=== PATIENT | male | born 1975 | race Caucasian/White ===

== ENCOUNTER 2023-07-01 14:10 | Emergency (ER) | payer OTHER ==
[2023-07-01 14:37] VITALS: BP 124/90; PULSE 86; RESP 18; TEMP 98.4
--- NOTE | 2023-07-01 14:52 | ED ---
General Adult HPI - General Chief complaint: Recheck/Abnormal Lab/Rx Stated complaint: Medication refill Time Seen by Provider: 07/01/23 14:28 Source: patient, RN notes reviewed Mode of arrival: ambulatory Limitations: no limitations - History of Present Illness Initial comments: This is a 48-year-old male presents emergency room chief complaint of a med ication refill. Patient states that he recently moved from the and does not have a current primary care provider in the area. States that his appointment is scheduled at the beginning of July. He takes Wellbutrin and Remeron once a day and is out of refills for the medications. States that he has not taken his medications for the past 2 years with no side effects. No other acute complaints at this time. - Related Data Previous Rx's Medication Instructions Recorded Mirtazapine [Remeron] 15 mg PO DAILY #7 tab 07/01/23 buPROPion XL [Wellbutrin XL] 300 mg PO DAILY #7 tab 07/01/23 Allergies Allergy/AdvReac Type Severity Reaction Status Date / Time No Known Allergies Allergy Verified 07/01/23 14:15 Review of Systems ROS Statement: Those systems with pertinent positive or pertinent negative responses have been documented in the HPI. ROS Other: All systems not noted in ROS Statement are negative. Past Medical History Past Medical History: No Reported History, Hyperlipidemia History of Any Multi-Drug Resistant Organisms: None Reported Past Surgical History: No Surgical Hx Reported Past Psychological History: Anxiety, Depression, PTSD Smoking Status: Vaper Past Alcohol Use History: None Reported Past Drug Use History: None Reported General Exam - General Exam Comments Initial Comments: Vital signs reviewed General: Well-appearing, nontoxic, no acute distress. Head: Normocephalic, atraumatic Eyes: PERRLA, EOMI ENT: Airway patent Chest: Nonlabored breathing Skin: No visual rash, normal skin tone Neuro: Alert and oriented 3 Musculoskeletal: No gross abnormalities Limitations: no limitations Course Vital Signs 07/01/23 14:13 Temperature 98.4 F Pulse Rate 86 Respiratory 18 Rate Blood Pressure 124/90 O2 Sat by Pulse 97 Oximetry Medical Decision Making - Medical Decision Making Was pt. sent in by a medical professional or institution (, PA, MEDICAL RECEPTIONIST MEDICAL ASSISTANT, urgent care, hospital, or intermediate...) When possible be specific @ -No Did you speak to anyone other than the patient for history (EMS, parent, family, police, friend...)? What history was obtained from this source @ -No Did you review nursing and triage notes (agree or disagree)? Why? @ -I reviewed and agree with nursing and triage notes Were old charts reviewed (outside hosp., previous admission, EMS record, old EKG, old radiological studies, urgent care reports/EKG's, intermediate records)? Report findings @ -No old charts were reviewed Differential Diagnosis (chest pain, altered mental status, abdominal pain women, abdominal pain men, vaginal bleeding, weakness, fever, dyspnea, syncope, headache, dizziness, GI bleed, back pain, seizure, CVA, palpatations, mental health, musculoskeletal)? @ -Medication refill EKG interpreted by me (3pts min.). @ -None X-rays interpreted by me (1pt min.). @ -None done CT interpreted by me (1pt min.). @ -None done U/S interpreted by me (1pt. min.). @ -None done What testing was considered but not performed or refused? (CT, X-rays, U/S, labs)? Why? @ -None What meds were considered but not given or refused? Why? @ -None Did you discuss the management of the patient with other professionals (professionals i.e. , PA, MEDICAL RECEPTIONIST MEDICAL ASSISTANT, lab, RT, psych nurse, clinical social worker, access services assistant, teacher, border patrol officer, block and case maker)? Give summary @ -No Was smoking cessation discussed for >3mins.? @ -No Was critical care preformed (if so, how long)? @ -No Were there social determinants of health that impacted care today? How? (Homelessness, low income, unemployed, alcoholism, drug addiction, transportation, low edu. Level, literacy, decrease access to med. care, usp, rehab)? @ -No Was there de-escalation of care discussed even if they declined (Discuss DNR or withdrawal of care, Hospice)? DNR status @ -No What co-morbidities impacted this encounter? (DM, HTN, Smoking, COPD, CAD, Cancer, CVA, ARF, Chemo, Hep., AIDS, mental health diagnosis, sleep apnea, morbid obesity)? @ -None Was patient admitted / discharged? Hospital course, mention meds given and route, prescriptions, significant lab abnormalities, going to OR and other pertinent info. @ -48-year-old male with a need for medication refill. I discussed with the patient he has been taking both medications from over a year with no side effects. Patient will be provided with a 1 week prescription for both Wellbutrin and Remeron. Patient has a appointment scheduled with a primary care provider in July for further evaluation. Undiagnosed new problem with uncertain prognosis? @ -No Drug Therapy requiring intensive monitoring for toxicity (Heparin, Nitro, Insulin, Cardizem)? @ -No Were any procedures done? @ -No Diagnosis/symptom? @ -medication refill Acute, or Chronic, or Acute on Chronic? @ -Acute Uncomplicated (without systemic symptoms) or Complicated (systemic symptoms)? @ -uncomplicated Side effects of treatment? @ -No Exacerbation, Progression, or Severe Exacerbation? @ -No Poses a threat to life or bodily function? How? (Chest pain, [place], [place], pneumonia, PE, COPD, DKA, ARF, appy, cholecystitis, CVA, Diverticulitis, Homicidal, Suicidal, threat to staff... and all critical care pts) @ -No Disposition Clinical Impression: Medication refill Narrative: Return to the emergency department if symptoms worsen or do not improve. Follow-up with primary care provider for further medication prescription. Disposition: HOME SELF-CARE Condition: Good Instructions (If sedation given, give patient instructions): Bupropion (By mouth) Prescriptions: Mirtazapine [Remeron] 15 mg PO DAILY #7 tab buPROPion XL [Wellbutrin XL] 300 mg PO DAILY #7 tab Is patient prescribed a controlled substance at d/c from ED?: No Referrals: None,Stated [Primary Care Provider] - 1-2 days Forms: Area PCPs Time of Disposition: 15:08
== END 2023-07-01 15:40 | disposition home or self-care (01) ==
LOC: EC 14:10
DX: Z76.0 Encounter for issue of repeat prescription (principal); F17.290 Nicotine dependence, other tobacco product, uncomplicated
CPT/HCPCS: 99282

== ENCOUNTER 2023-07-13 10:51 | Emergency (ER) | payer OTHER ==
--- NOTE | 2023-07-13 11:02 | ED ---
General Adult HPI - General Chief complaint: Recheck/Abnormal Lab/Rx Stated complaint: Medication refill Time Seen by Provider: 07/13/23 10:55 Source: patient, RN notes reviewed, old records reviewed Mode of arrival: ambulatory Limitations: no limitations - History of Present Illness Initial comments: 48-year-old male presents emergency department with chief complaint of needing his Wellbutrin refilled. Patient states he is hearing a week ago was given a weeks worth but due to insurance it has been difficult to follow-up with PCP patient denies being suicidal homicidal denies any other complaints. - Related Data Previous Rx's Medication Instructions Recorded Mirtazapine [Remeron] 15 mg PO DAILY #7 tab 07/01/23 buPROPion XL [Wellbutrin XL] 300 mg PO DAILY #7 tab 07/01/23 buPROPion XL [Wellbutrin XL] 300 mg PO DAILY #30 tab 07/13/23 Allergies Allergy/AdvReac Type Severity Reaction Status Date / Time No Known Allergies Allergy Verified 07/13/23 10:56 Review of Systems ROS Statement: Those systems with pertinent positive or pertinent negative responses have been documented in the HPI. ROS Other: All systems not noted in ROS Statement are negative. Past Medical History Past Medical History: No Reported History, Hyperlipidemia History of Any Multi-Drug Resistant Organisms: None Reported Past Surgical History: No Surgical Hx Reported Past Psychological History: Anxiety, Depression, PTSD Smoking Status: Vaper Past Alcohol Use History: None Reported Past Drug Use History: None Reported General Exam - General Exam Comments Initial Comments: General: Well-developed well-nourished distress HEENT: Normocephalic/atraumatic, PERLL, pharynx erythema, swallowing well, EAC no erythema, no exudates, TM clear, no cervical lymph nodes Neck: Supple, nontender, trachea midline Chest/Lungs: Normal respirations, no signs of respiratory distress clear to auscultation bilaterally no wheezes, rales, rhonchi Cardiac: Regular rate and rhythm, normal S1-S2, no murmurs rubs or gallops Abdomen/GI: Soft nontender, bowel sounds equal or quadrant x4, no guarding, no rebound no CVA tenderness : Deferred Musculoskeletal: Nontender, full range of motion, no edema, strength equal bilaterally Skin: Warmth, no rashes or lesions, no cyanosis or diaphoresis Neurologic: AAO x 3, CN 2-12 intact, Psychiatric: Mood and affect normal, judgment normal Limitations: no limitations Course Vital Signs 07/13/23 10:52 Temperature 97.5 F L Pulse Rate 98 Respiratory 18 Rate Blood Pressure 125/90 O2 Sat by Pulse 98 Oximetry Medical Decision Making - Medical Decision Making Was pt. sent in by a medical professional or institution (ROXY Stein, SELLING UNDERWRITER, urgent care, hospital, or care home...) When possible be specific @ -No Did you speak to anyone other than the patient for history (EMS, parent, family, police, friend...)? What history was obtained from this source @ -No Did you review nursing and triage notes (agree or disagree)? Why? @ -I reviewed and agree with nursing and triage notes Were old charts reviewed (outside hosp., previous admission, EMS record, old EKG, old radiological studies, urgent care reports/EKG's, care home records)? Report findings @ -No old charts were reviewed Differential Diagnosis (chest pain, altered mental status, abdominal pain women, abdominal pain men, vaginal bleeding, weakness, fever, dyspnea, syncope, headache, dizziness, GI bleed, back pain, seizure, CVA, palpatations, mental health, musculoskeletal)? @ -Medication refill, depression EKG interpreted by me (3pts min.). @ -As above X-rays interpreted by me (1pt min.). @ -None done CT interpreted by me (1pt min.). @ -None done U/S interpreted by me (1pt. min.). @ -None done What testing was considered but not performed or refused? (CT, X-rays, U/S, labs)? Why? @ -None What meds were considered but not given or refused? Why? @ -None Did you discuss the management of the patient with other professionals (professionals i.e. ROXY Stein, SELLING UNDERWRITER, lab, RT, psych nurse, social service agency director, cyber special agent, teacher, child support officer, case mgr)? Give summary @ -No Was smoking cessation discussed for >3mins.? @ -No Was critical care preformed (if so, how long)? @ -No Were there social determinants of health that impacted care today? How? (Homelessness, low income, unemployed, alcoholism, drug addiction, transportation, low edu. Level, literacy, decrease access to med. care, correction, rehab)? @ -No Was there de-escalation of care discussed even if they declined (Discuss DNR or withdrawal of care, Hospice)? DNR status @ -No What co-morbidities impacted this encounter? (DM, HTN, Smoking, COPD, CAD, Cancer, CVA, ARF, Chemo, Hep., AIDS, mental health diagnosis, sleep apnea, morbid obesity)? @ -None Was patient admitted / discharged? Hospital course, mention meds given and route, prescriptions, significant lab abnormalities, going to OR and other pertinent info. @ -Discharge patient given prescription refill will be discharged in stable condition Undiagnosed new problem with uncertain prognosis? @ -No Drug Therapy requiring intensive monitoring for toxicity (Heparin, Nitro, Insulin, Cardizem)? @ -No Were any procedures done? @ -No Diagnosis/symptom? @ -Medication refill Acute, or Chronic, or Acute on Chronic? @ -Acute Uncomplicated (without systemic symptoms) or Complicated (systemic symptoms)? @ -Uncomplicated Side effects of treatment? @ -No Exacerbation, Progression, or Severe Exacerbation? @ -No Poses a threat to life or bodily function? How? (Chest pain, [place], [place], pneumonia, PE, COPD, DKA, ARF, appy, cholecystitis, CVA, Diverticulitis, Homicidal, Suicidal, threat to staff... and all critical care pts) @ -No Disposition Clinical Impression: Medication refill Disposition: HOME SELF-CARE Condition: Stable Additional Instructions: Please return to the Emergency Department if symptoms worsen or any other concerns. Prescriptions: buPROPion XL [Wellbutrin XL] 300 mg PO DAILY #30 tab Is patient prescribed a controlled substance at d/c from ED?: No Referrals: None,Stated [Primary Care Provider] - 1-2 days Time of Disposition: 11:01
[2023-07-13 13:27] VITALS: BP 125/90; PULSE 98; RESP 18; TEMP 97.5
== END 2023-07-13 11:17 | disposition home or self-care (01) ==
LOC: EC 10:51
DX: Z76.0 Encounter for issue of repeat prescription (principal); F17.290 Nicotine dependence, other tobacco product, uncomplicated
CPT/HCPCS: 99281; 99283

== ENCOUNTER 2023-11-23 12:40 | Observation (INO) | payer OTHER ==
--- NOTE | 2023-11-23 13:06 | ED ---
General Adult HPI - General Chief complaint: Chest Pain Stated complaint: Chest Pain Time Seen by Provider: 11/23/23 12:52 Source: patient, RN notes reviewed Mode of arrival: ambulatory Limitations: no limitations - History of Present Illness Initial comments: Patient is a 48-year-old male presenting to the emergency department with concerns with chest discomfort. Onset of symptoms was around 2 AM. Discomfort is sternal and sharp. No radiation. Discomfort does worsen with exertion as well as position changes. Patient does have some occasional associated dyspnea and sweating. No nausea. No history of similar symptoms previously. Patient does use tobacco and does have history of high cholesterol. There is a probable family history of cardiac disease - Related Data Home Medications Medication Instructions Recorded Confirmed Mirtazapine [Remeron] 15 mg PO HS 11/23/23 11/23/23 OLANZapine [ZyPREXA] 10 mg PO W/LUNCH 11/23/23 11/23/23 Rosuvastatin [Crestor] 10 mg PO DAILY 11/23/23 11/23/23 buPROPion XL [Wellbutrin XL] 150 mg PO W/SUPPER 11/23/23 11/23/23 Previous Rx's Medication Instructions Recorded buPROPion XL [Wellbutrin XL] 300 mg PO DAILY #30 tab 07/13/23 Allergies Allergy/AdvReac Type Severity Reaction Status Date / Time No Known Allergies Allergy Verified 11/23/23 12:44 Review of Systems ROS Statement: Those systems with pertinent positive or pertinent negative responses have been documented in the HPI. ROS Other: All systems not noted in ROS Statement are negative. Constitutional: Denies: fever Eyes: Denies: eye pain ENT: Denies: ear pain Respiratory: Reports: as per HPI Cardiovascular: Reports: as per HPI, chest pain Gastrointestinal: Denies: abdominal pain Musculoskeletal: Denies: back pain Past Medical History Past Medical History: Hyperlipidemia History of Any Multi-Drug Resistant Organisms: None Reported Past Surgical History: No Surgical Hx Reported Past Psychological History: Anxiety, Bipolar, Depression, PTSD Smoking Status: Vaper Past Alcohol Use History: None Reported Past Drug Use History: None Reported General Exam Limitations: no limitations General appearance: alert, in no apparent distress Head exam: Present: normocephalic Eye exam: Present: normal appearance Neck exam: Present: normal inspection Respiratory exam: Present: normal lung sounds bilaterally. Absent: chest wall t enderness Cardiovascular Exam: Present: regular rate, normal rhythm, normal heart sounds Expanded Peripheral pulses: 2+: Radial (R), Radial (L), Dorsalis Pedis (R), Dorsalis Pedis (L) GI/Abdominal exam: Present: soft. Absent: tenderness Extremities exam: Present: normal inspection. Absent: pedal edema, calf tenderness Neurological exam: Present: alert Psychiatric exam: Present: normal affect, normal mood Skin exam: Present: normal color Course Vital Signs 11/23/23 12:41 Temperature 97.7 F Pulse Rate 71 Respiratory 18 Rate Blood Pressure 126/88 O2 Sat by Pulse 99 Oximetry EKG Findings - EKG Results: EKG: interpreted by ERMD (Nonspecific ST-T), sinus rhythm, normal axis, normal Q RS Medical Decision Making - Medical Decision Making Was pt. sent in by a medical professional or institution (, PA, BRUSH WORKER, urgent care, hospital, or longterm...) When possible be specific @ -No Did you speak to anyone other than the patient for history (EMS, parent, family, police, friend...)? What history was obtained from this source @ -No Did you review nursing and triage notes (agree or disagree)? Why? @ -I reviewed and agree with nursing and triage notes Were old charts reviewed (outside hosp., previous admission, EMS record, old EKG, old radiological studies, urgent care reports/EKG's, longterm records)? Report findings @ -No old charts were reviewed Differential Diagnosis (chest pain, altered mental status, abdominal pain women, abdominal pain men, vaginal bleeding, weakness, fever, dyspnea, syncope, headache, dizziness, GI bleed, back pain, seizure, CVA, palpatations, mental health, musculoskeletal)? @ -Differential Chest Pain: Stable Angina, Unstable Angina, STEMI, NSTEMI Aortic Dissection, Pneumothorax, Musculoskeletal, Esophageal Spasm GERD, Cholecystitis, Pancreatitis, Zoster, this is not meant to be an all-inclusive list. EKG interpreted by me (3pts min.). @ -As above X-rays interpreted by me (1pt min.). @ -Chest x-ray shows no acute process CT interpreted by me (1pt min.). @ -None done U/S interpreted by me (1pt. min.). @ -None done What testing was considered but not performed or refused? (CT, X-rays, U/S, labs)? Why? @ -None What meds were considered but not given or refused? Why? @ -None Did you discuss the management of the patient with other professionals (professionals i.e. , PA, BRUSH WORKER, lab, RT, psych nurse, socially responsible investment adviser, fitness and wellness coordinator, teacher, chief business officer, cyanide case hardener)? Give summary @ -Case discussed with Dr. Patel who will admit covering hospital call Was smoking cessation discussed for >3mins.? @ -No Was critical care preformed (if so, how long)? @ -No Were there social determinants of health that impacted care today? How? (Homelessness, low income, unemployed, alcoholism, drug addiction, transportation, low edu. Level, literacy, decrease access to med. care, retirement, rehab)? @ -No Was there de-escalation of care discussed even if they declined (Discuss DNR or withdrawal of care, Hospice)? DNR status @ -No What co-morbidities impacted this encounter? (DM, HTN, Smoking, COPD, CAD, Cancer, CVA, ARF, Chemo, Hep., AIDS, mental health diagnosis, sleep apnea, morbid obesity)? @ -History of tobacco use and hypercholesterolemia as well as family history of cardiac disease Was patient admitted / discharged? Hospital course, mention meds given and route, prescriptions, significant lab abnormalities, going to OR and other pertinent info. @ -Patient presents with chest discomfort improved with nitroglycerin. First troponin unremarkable. Patient will be admitted with cardiac consult. Admission orders written Undiagnosed new problem with uncertain prognosis? @ -No Drug Therapy requiring intensive monitoring for toxicity (Heparin, Nitro, Insulin, Cardizem)? @ -No Were any procedures done? @ -No Diagnosis/symptom? @ -Chest pain Acute, or Chronic, or Acute on Chronic? @ -Acute Uncomplicated (without systemic symptoms) or Complicated (systemic symptoms)? @ -Default Side effects of treatment? @ -No Exacerbation, Progression, or Severe Exacerbation? @ -No Poses a threat to life or bodily function? How? (Chest pain, [place], [place], pneumonia, PE, COPD, DKA, ARF, appy, cholecystitis, CVA, Diverticulitis, Homicidal, Suicidal, threat to staff... and all critical care pts) @ -Threat to cardiac function - Lab Data Result diagrams: 11/23/23 13:15 11/23/23 13:15 Lab Results 11/23/23 11/23/23 11/23/23 Range/Units 13:15 13:15 13:15 WBC 5.9 (3.8-10.6) k/uL RBC 4.90 (4.30-5.90) m/uL Hgb 14.6 (13.0-17.5) gm/dL Hct 41.9 (39.0-53.0) % MCV 85.4 (80.0-100.0) fL MCH 29.8 (25.0-35.0) pg MCHC 34.9 (31.0-37.0) g/dL RDW 13.5 (11.5-15.5) % Plt Count 303 (150-450) k/uL MPV 7.1 Neutrophils % 60 % Lymphocytes % 28 % Monocytes % 6 % Eosinophils % 4 % Basophils % 1 % Neutrophils # 3.5 (1.3-7.7) k/uL Lymphocytes # 1.7 (1.0-4.8) k/uL Monocytes # 0.4 (0-1.0) k/uL Eosinophils # 0.3 (0-0.7) k/uL Basophils # 0.0 (0-0.2) k/uL PT 10.7 (10.0-12.5) sec INR 1.0 (<1.2) APTT 25.0 (22.0-30.0) sec D-Dimer 0.58 (<0.60) mg/L FEU Sodium 141 (137-145) mmol/L Potassium 4.5 (3.5-5.1) mmol/L Chloride 108 H (98-107) mmol/L Carbon Dioxide 28 (22-30) mmol/L Anion Gap 5 mmol/L BUN 16 (9-20) mg/dL Creatinine 1.03 (0.66-1.25) mg/dL Est GFR (CKD-EPI)AfAm >90 (>60 ml/min/1.73 sqM) Est GFR (CKD-EPI)NonAf 87 (>60 ml/min/1.73 sqM) Glucose 96 (74-99) mg/dL Calcium 9.5 (8.4-10.2) mg/dL Magnesium 1.9 (1.6-2.3) mg/dL Total Bilirubin 0.7 (0.2-1.3) mg/dL AST 23 (17-59) U/L ALT 14 (4-49) U/L Alkaline Phosphatase 84 (38-126) U/L Troponin I (0.000-0.034) ng/mL Total Protein 7.1 (6.3-8.2) g/dL Albumin 4.2 (3.5-5.0) g/dL Amylase 65 (30-110) U/L Lipase 101 (23-300) U/L 11/23/23 Range/Units 13:15 WBC (3.8-10.6) k/uL RBC (4.30-5.90) m/uL Hgb (13.0-17.5) gm/dL Hct (39.0-53.0) % MCV (80.0-100.0) fL MCH (25.0-35.0) pg MCHC (31.0-37.0) g/dL RDW (11.5-15.5) % Plt Count (150-450) k/uL MPV Neutrophils % % Lymphocytes % % Monocytes % % Eosinophils % % Basophils % % Neutrophils # (1.3-7.7) k/uL Lymphocytes # (1.0-4.8) k/uL Monocytes # (0-1.0) k/uL Eosinophils # (0-0.7) k/uL Basophils # (0-0.2) k/uL PT (10.0-12.5) sec INR (<1.2) APTT (22.0-30.0) sec D-Dimer (<0.60) mg/L FEU Sodium (137-145) mmol/L Potassium (3.5-5.1) mmol/L Chloride (98-107) mmol/L Carbon Dioxide (22-30) mmol/L Anion Gap mmol/L BUN (9-20) mg/dL Creatinine (0.66-1.25) mg/dL Est GFR (CKD-EPI)AfAm (>60 ml/min/1.73 sqM) Est GFR (CKD-EPI)NonAf (>60 ml/min/1.73 sqM) Glucose (74-99) mg/dL Calcium (8.4-10.2) mg/dL Magnesium (1.6-2.3) mg/dL Total Bilirubin (0.2-1.3) mg/dL AST (17-59) U/L ALT (4-49) U/L Alkaline Phosphatase (38-126) U/L Troponin I <0.012 (0.000-0.034) ng/mL Total Protein (6.3-8.2) g/dL Albumin (3.5-5.0) g/dL Amylase (30-110) U/L Lipase (23-300) U/L Disposition Clinical Impression: Chest pain Disposition: ADMITTED IP TO THIS HOSP Is patient prescribed a controlled substance at d/c from ED?: No Referrals: None,Stated [Primary Care Provider] - 1-2 days Time of Disposition: 14:16
[2023-11-23] MEDS: NITROGLYCERIN SL TABS 0.4 MG TAB SUBLINGUAL STA ×3 (13:07→13:16)
[2023-11-23] MEDS: ASPIRIN 81 MG PO STA (13:07)
--- NOTE | 2023-11-23 13:34 | XR ---
EXAMINATION TYPE: XR chest 2V DATE OF EXAM: 11/23/2023 COMPARISON: NONE TECHNIQUE: PA and lateral views submitted. HISTORY: Chest pain FINDINGS: The lungs are clear and there is no pneumothorax, pleural effusion, or focal pneumonia. Heart size normal and no overt failure. Osseous structures demonstrate hypertrophic and degenerative changes of the spine. Hyperinflation compatible with COPD. IMPRESSION: 1. No acute process. [facility], , 11/23/2023 1:31 PM
[2023-11-23 13:35] LABS: ALT 14 U/L (4-49); AST 23 U/L (17-59); African American GFR (CKD) >90 (>60 ml/min/1.73 sqM); Albumin 4.2 g/dL (3.5-5.0); Alkaline Phosphatase 84 U/L (38-126); Amylase 65 U/L (30-110); Anion Gap 5 mmol/L; Blood Urea Nitrogen 16 mg/dL (9-20); Calcium 9.5 mg/dL (8.4-10.2); Carbon Dioxide 28 mmol/L (22-30); Chloride 108 mmol/L (98-107); Glucose 96 mg/dL (74-99); Lipase 101 U/L (23-300); Magnesium 1.9 mg/dL (1.6-2.3); Non-African American GFR(CKD) 87 (>60 ml/min/1.73 sqM); Potassium 4.5 mmol/L (3.5-5.1); Sodium 141 mmol/L (137-145); Total Bilirubin 0.7 mg/dL (0.2-1.3); Total Protein 7.1 g/dL (6.3-8.2)
[2023-11-23 13:36] LABS: Basophils % (A) 1 %; Eosinophils # (A) 0.3 k/uL (0-0.7); Eosinophils % (A) 4 %; HCT 41.9 % (39.0-53.0); HGB 14.6 gm/dL (13.0-17.5); Lymphocytes # (A) 1.7 k/uL (1.0-4.8); Lymphocytes % (A) 28 %; MCH 29.8 pg (25.0-35.0); MCHC 34.9 g/dL (31.0-37.0); MCV 85.4 fL (80.0-100.0); Mean Platelet Volume 7.1; Monocytes # (A) 0.4 k/uL (0-1.0); Monocytes % (A) 6 %; Neutrophils # (A) 3.5 k/uL (1.3-7.7); Neutrophils % (A) 60 %; Platelet Count 303 k/uL (150-450); RDW 13.5 % (11.5-15.5); WBC 5.9 k/uL (3.8-10.6)
[2023-11-23 13:39] LABS: Prothrombin Time 10.7 sec (10.0-12.5)
[2023-11-23] MEDS ORDERED: NITROGLYCERIN SL TABS 0.4 MG TAB SUBLINGUAL PRN (14:46)
[2023-11-23] MEDS: NITROGLYCERIN OINT 1 INCH/GM PACKET TOPICAL SCH (15:03)
[2023-11-23] MEDS: buPROPion XL 150 MG TAB.ER.24H PO SCH (18:20)
[2023-11-23] MEDS: MIRTAZAPINE 15 MG TAB PO SCH (22:10)
[2023-11-23] MEDS: ACETAMINOPHEN TAB 500 MG TAB PO PRN (23:16)
--- NOTE | 2023-11-24 04:49 | HP ---
HISTORY AND PHYSICAL HISTORY OF PRESENT ILLNESS: The patient came to the hospital with some chest pain. Chest discomfort started at 2 in the morning, substernal, sharp, nonradiating, gets worse with exertion as well as position change, some occasional dyspnea, sweating. No nausea. High cholesterol, nicotine addiction, family history of heart disease. HOME MEDICATIONS: 1. Wellbutrin XL 150 daily. 2. Crestor 10 mg daily. 3. Zyprexa 10 daily. 4. Remeron 15 daily. ALLERGIES: Negative. REVIEW OF SYSTEMS: A 14-point review of systems positive for chest pain, chronic fatigue, weakness, otherwise negative. PAST MEDICAL HISTORY: As mentioned, dyslipidemia, anxiety, bipolar depression, PTSD. He is a chronic vapor. PHYSICAL EXAMINATION: VITAL SIGNS: Temp 97.7 pulse 71, respiratory rate 18, blood pressure 126/88. CARDIOVASCULAR: S1, S2. LUNGS: Transmitted upper sounds. Decreased breath sounds. PSYCH: Anxious, nervous. NEUROLOGIC: Cranial nerves intact. GI: Soft, nontender. HEMATOLOGY: Negative Homans. SKIN: Warm, dry, and intact. LABORATORY DATA: Hemoglobin is 14.6, white count 5.9, BUN 16, creatinine 1.03. Troponin 1st one is negative. IMPRESSION: Cardiology will evaluate, rule out [place]. Ordered D-dimer. EKG shows no ischemia. Rule out [place], atypical chest pain. Order echocardiology consult. Please see further orders. MMODL / IJN: [id number] /
[2023-11-24] MEDS: ASPIRIN 325 MG TAB PO SCH (09:15)
[2023-11-24] MEDS: ATORVASTATIN 20 MG TAB PO SCH (09:15)
--- NOTE | 2023-11-24 10:11 | P.CRDCN ---
History of Present Illness Consult date: 11/24/23 Consult reason: chest pain History of present illness: This is a 48-year-old male with past medical history of hyperlipidemia, PTSD, bipolar disorder. We have been asked to evaluate the patient for chest pain. No previous cardiac history, no significant FMH of cardiac disease. Pain in midsternal area, sharp, onset 2 am while sleeping. Pain worse with DB and movement. Pain is worse when he lays on his left side. NtG s/l and NTP seemed to help. He denies fever or chills but sweats for a few days. Pain is minimal at this time. Patient vapes, no marijuana use, no alcohol use, no illicit drug use. Blood pressure 100/65, pulse ox 96% on room air, heart rate 59. EKG: Sinus rhythm with early repolarization Chest x-ray: No acute process Laboratory studies: CBC D-dimer within normal limits. Troponin negative x 3. BUN 16 creatinine 1.03. Home cardiac medications: Crestor 10 mg daily Review Of Systems: At the time of my exam: CONSTITUTIONAL: Denies fever or chills. HEENT: Denies blurred vision, vision changes, or eye pain. Denies hemoptysis CARDIOVASCULAR: + chest pain. Denies orthopnea. Denies PND. Denies palpitations RESPIRATORY: Denies shortness of breath. GASTROINTESTINAL: Denies abdominal pain. Denies nausea or vomiting. HEMATOLOGIC: Denies bleeding disorders. GENITOURINARY: Denies any blood in urine. SKIN: Denies puritis. Denies rash. Physical examination: Gen: This is a 48-year-old male in no acute distress VS: reviewed HEENT: Head is atraumatic, normocephalic. Pupils equal, round. Sclerae is anicteric. NECK: Supple. No JVD. LUNGS: Clear to auscultation. No wheezes or rhonchi. No intercostal retractions. HEART: Regular rate and rhythm. No murmur. ABDOMEN: Soft No tenderness. EXTREMITIES: No pedal edema. No calf tenderness. NEUROLOGICAL: Patient is awake, alert and oriented x3. Assessment: Atypical chest pain, acute coronary syndrome ruled out Early repolarization concerning for pericarditis Hyperlipidemia PTSD Bipolar disorder Plan: Resume patient's home cardiac medications D/c NTP Schedule patient for stress echocardiogram today Obtain CRP and sed rate. If these are elevated, start patient on colchicine If stress echocardiogram is unremarkable, patient is cleared for discharge from cardiology. Thank you kindly for this consultation. Nurse practitioner note has been reviewed, I agree with documented findings and plan of care. Patient was seen and examined. Past Medical History Past Medical History: Hyperlipidemia History of Any Multi-Drug Resistant Organisms: None Reported Past Surgical History: No Surgical Hx Reported Past Psychological History: Anxiety, Bipolar, Depression, PTSD Smoking Status: Vaper Past Alcohol Use History: None Reported Past Drug Use History: None Reported Medications and Allergies Home Medications Medication Instructions Recorded Confirmed Type buPROPion XL [Wellbutrin XL] 300 mg PO DAILY #30 tab 07/13/23 11/23/23 Rx Mirtazapine [Remeron] 15 mg PO HS 11/23/23 11/23/23 History OLANZapine [ZyPREXA] 10 mg PO W/LUNCH 11/23/23 11/23/23 History Rosuvastatin [Crestor] 10 mg PO DAILY 11/23/23 11/23/23 History buPROPion XL [Wellbutrin XL] 150 mg PO W/SUPPER 11/23/23 11/23/23 History Allergies Allergy/AdvReac Type Severity Reaction Status Date / Time No Known Allergies Allergy Verified 11/23/23 12:44 Physical Exam Vitals: Vital Signs Temp Pulse Pulse Pulse Resp BP BP 11/24/23 07:00 97.5 F L 59 L 17 100/65 11/24/23 00:53 98.0 F 75 18 108/69 11/23/23 23:20 79 11/23/23 19:54 98.0 F 67 18 11/23/23 16:23 97.9 F 61 16 11/23/23 15:16 68 16 117/80 11/23/23 12:41 97.7 F 71 18 126/88 BP Pulse Ox 11/24/23 07:00 96 11/24/23 00:53 94 L 11/23/23 23:20 138/69 11/23/23 19:54 106/65 95 11/23/23 16:23 107/70 97 11/23/23 15:16 100 11/23/23 12:41 99 Intake and Output 11/23/23 11/24/23 11/24/23 22:59 06:59 14:59 Intake Total 0 Balance 0 Intake: Oral 0 Other: Voiding Method Toilet # Voids 1 2 Weight 86.183 kg Results 11/23/23 13:15 11/23/23 13:15 Cardiac Enzymes 11/23/23 11/23/23 11/23/23 Range/Units 13:15 13:15 17:14 AST 23 (17-59) U/L Troponin I <0.012 <0.012 (0.000-0.034) ng/mL 11/23/23 Range/Units 21:18 AST (17-59) U/L Troponin I <0.012 (0.000-0.034) ng/mL Coagulation 11/23/23 Range/Units 13:15 PT 10.7 (10.0-12.5) sec APTT 25.0 (22.0-30.0) sec CBC 11/23/23 Range/Units 13:15 WBC 5.9 (3.8-10.6) k/uL RBC 4.90 (4.30-5.90) m/uL Hgb 14.6 (13.0-17.5) gm/dL Hct 41.9 (39.0-53.0) % Plt Count 303 (150-450) k/uL Comprehensive Metabolic Panel 11/23/23 Range/Units 13:15 Sodium 141 (137-145) mmol/L Potassium 4.5 (3.5-5.1) mmol/L Chloride 108 H (98-107) mmol/L Carbon Dioxide 28 (22-30) mmol/L BUN 16 (9-20) mg/dL Creatinine 1.03 (0.66-1.25) mg/dL Glucose 96 (74-99) mg/dL Calcium 9.5 (8.4-10.2) mg/dL AST 23 (17-59) U/L ALT 14 (4-49) U/L Alkaline Phosphatase 84 (38-126) U/L Total Protein 7.1 (6.3-8.2) g/dL Albumin 4.2 (3.5-5.0) g/dL Current Medications Generic Name Dose Route Start Last Admin Trade Name Freq PRN Reason Stop Dose Admin Acetaminophen 500 mg 11/23/23 22:58 11/23/23 23:16 Acetaminophen Tab 500 Mg Tab PO 500 mg Q6HR PRN Administration Fever and/ or Pain Aspirin 325 mg 11/24/23 09:00 Aspirin 325 Mg Tab PO DAILY [facility] Atorvastatin Calcium 20 mg 11/24/23 09:00 Atorvastatin 20 Mg Tab PO DAILY [facility] Bupropion HCl 300 mg 11/24/23 09:00 Bupropion Xl 300 Mg Tab.Er.24h PO DAILY [facility]CO A Bupropion HCl 150 mg 11/23/23 17:30 11/23/23 18:20 Bupropion Xl 150 Mg Tab.Er.24h PO 150 mg W/SUPPER MARCO A Administration Mirtazapine 15 mg 11/23/23 21:00 11/23/23 22:10 Mirtazapine 15 Mg Tab PO 15 mg HS MARCO A Administration Nitroglycerin 0.4 mg 11/23/23 14:46 Nitroglycerin Sl Tabs 0.4 Mg Tab SUBLINGUAL Q5M PRN Chest Pain Nitroglycerin 1 inch 11/23/23 15:00 11/24/23 06:52 Nitroglycerin Oint 1 Inch/Gm Packet TOPICAL Not Given Q6HR [facility] Olanzapine 10 mg 11/24/23 12:30 Olanzapine 10 Mg Tab PO W/LUNCH [facility] Intake and Output 11/23/23 11/24/23 11/24/23 22:59 06:59 14:59 Intake Total 0 Balance 0 Intake: Oral 0 Other: Voiding Method Toilet # Voids 1 2 Weight 86.183 kg 11/23/23 13:15 11/23/23 13:15
[2023-11-24 10:59] LABS: Chol/HDL Ratio 6.16 Ratio; LDL Cholesterol,Calculated 138.5 mg/dL (0.0-131.0)
[2023-11-24] MEDS: buPROPion XL 300 MG TAB.ER.24H PO SCH (11:31)
[2023-11-24] MEDS: OLANZapine 10 MG TAB PO SCH (12:29)
[2023-11-24 14:33] VITALS: BP 123/80; PULSE 94; RESP 16; TEMP 98.5
--- NOTE | 2023-11-24 14:39 | CA ---
Transthoracic Echo Report Name: Basim Scanlon Age: 48 Gender: M : 1975 Exam Date: 11/24/2023 08:23 Exam Location: [facility] Ht (in): 69 Wt (lb): 190 Ordering Physician: Mehdi Patel MD Attending/Referring Phys: Rigging Loft Repairer Deana Hernandez RDCS Procedure CPT: Indications: CP Cardiac Hx: Technical Quality: Fair Contrast 1: Total Dose (mL): Contrast 2: Total Dose (mL): MEASUREMENTS (Male / Female) Normal Values 2D ECHO LV Diastolic Diameter PLAX 4.7 cm 4.2 - 5.9 / 3.9 - 5.3 cm LV Systolic Diameter PLAX 2.6 cm IVS Diastolic Thickness 0.9 cm 0.6 - 1.0 / 0.6 - 0.9 cm LVPW Diastolic Thickness 0.9 cm 0.6 - 1.0 / 0.6 - 0.9 cm LV Relative Wall Thickness 0.4 RV Internal Dim ED PLAX 2.9 cm LA Systolic Diameter LX 3.4 cm 3.0 - 4.0 / 2.7 - 3.8 cm LV Diastolic Volume MOD 4C 100.9 cm??? LV Systolic Volume MOD 4C 51.1 cm??? LV Ejection Fraction MOD 4C 49.4 % LV Cardiac Index MOD 4C 1349.5 cm???/min???m??? LV Diastolic Length 4C 9.8 cm LV Systolic Length 4C 8.1 cm LV Diastolic Volume MOD 2C 86.4 cm??? LV Systolic Volume MOD 2C 48.3 cm??? LV Ejection Fraction MOD 2C 44.1 % LV Cardiac Index MOD 2C 1032.2 cm???/min???m??? LV Diastolic Length 2C 8.8 cm LV Systolic Length 2C 7.3 cm LA Volume 58.9 cm??? 18 - 58 / 22 - 52 cm??? LA Volume Index 28.5 cm???/m??? 16 - 28 cm???/m??? M-MODE Aortic Root Diameter MM 3.2 cm AV Cusp Separation MM 2.2 cm DOPPLER AV Peak Velocity 133.6 cm/s AV Peak Gradient 7.1 mmHg MV Area PHT 2.1 cm??? Mitral E Point Velocity 59.4 cm/s Mitral A Point Velocity 59.4 cm/s Mitral E to A Ratio 1.0 MV Deceleration Time 359.3 ms FINDINGS Left Ventricle Left ventricular ejection fraction is estimated at 50-55 %. Left ventricular cavity size normal. Left ventricular wall thickness normal. Normal left ventricular wall motion. Right Ventricle Normal right ventricular size and function. Unable to estimate the right ventricular systolic pressure. Right Atrium Normal right atrial size. No right atrial thrombus or mass seen. Left Atrium Normal left atrial size. No left atrial thrombus or mass present. Mitral Valve Structurally normal mitral valve. No mitral stenosis, regurgitation or prolapse. Aortic Valve Trileaflet aortic valve. No aortic valve stenosis or regurgitation. Tricuspid Valve Structurally normal tricuspid valve. No tricuspid stenosis, regurgitation or prolapse. Pulmonic Valve Structurally normal pulmonic valve. Trace to mild pulmonic regurgitation. Pericardium No pericardial or pleural effusion. Aorta Normal size aortic root and proximal ascending aorta. CONCLUSIONS Left ventricular ejection fraction 50-55% Trace to mild pulmonic regurgitation No pericardial effusion Previewed by: Dr. Mor Veliz DO (Electronically Signed) Final Date: 24 November 2023 14:39
--- NOTE | 2023-11-24 14:57 | CA ---
Stress Echo Report Basim Scanlon Age: 48 Gender: M : 1975 Exam Date: 11/24/2023 10:30 Exam Location: [facility] Ht (in): 69 Wt (lb): 190 Ordering Physician: Kait Dobbins Referring Physician: [id number] Foundation Stage Teacher: Adiel Edgar Technologist Procedure CPT: Indication: Chest Pain ICD-9 Codes: Rhythm: Patient History: Cardiac Medications: SEE CHART Medications in past 24 hours: Contrast: N/A Stress Results Protocol: Miki Total dose(mL): NA Exercise Duration (min:sec): 9:[address] Depression (mm): Angina Score: Garcia Score: METS: 11.1 Resting HR: 67 Resting BP: 117 / 91 Peak HR: 156 Peak BP: 162 / 70 Max Predicted HR: 173 90 % Max Predicted HR Target HR: 147 Double Product: 43634 Stress Summary: BP Response: Reason for Termination: Reached target heart rate or work-load Cardiac Symptoms: NO SYMPTOMS ECG Analysis Resting ECG: Stress ECG: Arrhythmia: Echo Analysis Resting Echo: Peak Echo Analysis: MEASUREMENTS (Male/Female) Normal Values CONCLUSIONS Patient underwent exercise stress echo with a Miki protocol treadmill stress test. Patient exercised into Stage 3 for a total of 9 minutes and 31 seconds reaching a total of 11.1 METS. Patient's maximum heart rate was 156 which represented 90% age- predicted maximum heart rate. Stress EKG portion: At baseline patient's EKG showed normal sinus rhythm, normal axis, no significant ST or T wave abnormalities with borderline J-point elevation.. At peak exercise, EKG showed no significant change from baseline. Stress echo portion: 2-D echocardiogram was performed in the parasternal long, personal short, apical 2 and apical four-chamber views at rest, peak exercise and in recovery. At baseline, echocardiogram showed left ventricular ejection fraction 55% without wall motion abnormalities. With peak exercise, echocardiogram shows improvement in left ventricular ejection fraction, increase contractility, decrease in left ventricular end systolic dimension without wall motion abnormalities consistent with a normal response to exercise. Conclusions: 1. Normal EKG and echo response to exercise without evidence of inducible ischemia. 2. Good exercise capacity. Dr. Mor Veliz DO (Electronically Signed) Final Date: 24 November 2023 14:56
[2023-11-25] MEDS ORDERED: ASPIRIN 81 MG PO SCH (09:00)
== END 2023-11-24 16:00 | disposition home or self-care (01) ==
LOC: EC 12:40 → 6NMEDSUR 14:47
PROVIDERS: ADMIT Family Medicine; ATTEND Family Medicine
DX: R07.89 Other chest pain (principal); R06.00 Dyspnea, unspecified; E78.00 Pure hypercholesterolemia, unspecified; F17.290 Nicotine dependence, other tobacco product, uncomplicated; R53.1 Weakness; R53.83 Other fatigue; F31.9 Bipolar disorder, unspecified; F43.10 Post-traumatic stress disorder, unspecified; F41.9 Anxiety disorder, unspecified; Z79.899 Other long term (current) drug therapy; Z82.49 Family history of ischemic heart disease and other diseases of the circulatory system
CPT/HCPCS: 99285; 36415; 93005; 93306; 93351; 85379; 80061; 80053; 85652; 82150; 83690; 83735; 84484; 85025; 85610; 85730; 86140; 71046; G0378 ×2

== ENCOUNTER 2023-12-01 13:27 | Inpatient (IN) | payer MEDICAID, OTHER ==
[2023-12-01] MEDS ORDERED: IBUPROFEN 600 MG TAB PO PRN (15:43)
[2023-12-01] MEDS ORDERED: haloperidoL 5 MG TAB PO PRN (15:43)
[2023-12-01] MEDS ORDERED: LORazepam 1 MG TAB PO PRN (15:43)
[2023-12-01] MEDS ORDERED: MAGNESIUM HYDROXIDE 2,400 MG/30 ML CUP PO PRN (15:43)
[2023-12-01] MEDS ORDERED: HALOPERIDOL LACTATE 5 MG/ML 1 ML VIAL IM PRN (15:43)
[2023-12-01] MEDS ORDERED: LORazepam 2 MG/ML INJ IM PRN (15:43)
[2023-12-01] MEDS: NICOTINE 21MG/24HR PATCH TRANSDERM SCH (16:01)
[2023-12-01] MEDS: buPROPion XL 150 MG TAB.ER.24H PO SCH (17:01)
[2023-12-01] MEDS: MIRTAZAPINE 15 MG TAB PO SCH (20:54)
--- NOTE | 2023-12-01 22:21 | P.PN ---
Progress Note - Text Progress Note Date: 12/01/23 Attempted to see the patient in the MHU on 11/30 at 2100. The patient refused to be seen or be evaluated.
[2023-12-02] MEDS: buPROPion XL 300 MG TAB.ER.24H PO SCH (08:16)
[2023-12-02] MEDS: ATORVASTATIN 20 MG TAB PO SCH (08:16)
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
[2023-12-02 13:02] LABS: Basophils # (A) 0.1 k/uL (0-0.2); Basophils % (A) 1 %; Eosinophils # (A) 0.3 k/uL (0-0.7); Eosinophils % (A) 5 %; HCT 44.8 % (39.0-53.0); HGB 15.1 gm/dL (13.0-17.5); Lymphocytes # (A) 2.1 k/uL (1.0-4.8); Lymphocytes % (A) 31 %; MCH 29.6 pg (25.0-35.0); MCHC 33.7 g/dL (31.0-37.0); MCV 87.8 fL (80.0-100.0); Mean Platelet Volume 7.1; Monocytes # (A) 0.4 k/uL (0-1.0); Monocytes % (A) 6 %; Neutrophils # (A) 3.8 k/uL (1.3-7.7); Neutrophils % (A) 56 %; Platelet Count 397 k/uL (150-450); RDW 13.7 % (11.5-15.5); WBC 6.7 k/uL (3.8-10.6)
[2023-12-02 13:22] LABS: ALT 14 U/L (4-49); AST 20 U/L (17-59); African American GFR (CKD) >90 (>60 ml/min/1.73 sqM); Albumin 4.2 g/dL (3.5-5.0); Alkaline Phosphatase 82 U/L (38-126); Anion Gap 9 mmol/L; Bilirubin, Delta 0.1 mg/dL (0.0-0.2); Bilirubin,Unconjugated 0.2 mg/dL (0.0-1.1); Blood Urea Nitrogen 14 mg/dL (9-20); Calcium 9.4 mg/dL (8.4-10.2); Carbon Dioxide 27 mmol/L (22-30); Chloride 107 mmol/L (98-107); Glucose 81 mg/dL (74-99); Non-African American GFR(CKD) 87 (>60 ml/min/1.73 sqM); Potassium 4.4 mmol/L (3.5-5.1); Sodium 143 mmol/L (137-145); Total Bilirubin 0.3 mg/dL (0.2-1.3); Total Protein 7.1 g/dL (6.3-8.2)
[2023-12-02] MEDS: SERTRALINE 50 MG TAB PO SCH (13:22)
[2023-12-02 17:04] LABS: Appearance,Urine Clear (Clear); Bilirubin,Urine Negative (Negative); Blood,Urine Negative (Negative); Color,Urine Light Yellow; Glucose,Urine (UA) Negative (Negative); Ketones,Urine Negative (Negative); Leukocyte Esterase,Urine Negative (Negative); Nitrite,Urine Negative (Negative); Protein,Urine Negative (Negative); Urobilinogen,Urine <2.0 mg/dL (<2.0)
[2023-12-02 22:02] LABS: Chol/HDL Ratio 5.88 Ratio
[2023-12-02 23:05] LABS: LDL Cholesterol,Calculated 125.3 mg/dL (0.0-131.0)
--- NOTE | 2023-12-03 01:24 | P.CONS ---
History of Present Illness - Reason for Consult Consult date: 12/02/23 - History of Present Illness The patient is a 48-year-old female with a PMH of polysubstance abuse who was transferred from [facility] admitted patient had been admitted for depression with suicidal ideation. The patient was seen in the mental health unit. He reported a significant history of substance use with most recently using cocaine 2 days ago. He denied any physical complaints at the time of inte rview. Does report tobacco use with vaping. Denies alcohol use. Denies any physical complaints including chest discomfort, shortness of breath, fever, chills, cough, nausea, vomiting, abdominal pain, diarrhea. Review of systems: Pertinent positives and negatives as discussed in HPI, a complete review of systems was performed and all other systems are negative. Physical examination: General: non toxic, no distress, appears at stated age, overweight Derm: no unusual rashes/lesions, no unusual ecchymoses, warm, dry Head: atraumatic, normocephalic, symmetric Eyes: EOMI, no lid lag, anicteric sclera ENT: Nose and ears atraumatic, no thrush, no pharyngeal erythema Neck: trachea midline, supple Mouth: no lip lesion, mucus membranes moist Cardiovascular: S1S2 reg, no murmur, no edema Lungs: CTA bilateral, no rhonchi, no rales , no accessory muscle use Abdominal: soft, nontender to palpation, no guarding Ext: no gross muscle atrophy, no contractures, Neuro: No gross focal neuro deficits noted Psych: Alert, oriented, appropriate affect Assessment: Polysubstance including cocaine use Depression and suicidal ideation Imaging: None performed Data Review: Reviewed with WBC count 6.7, hemoglobin 15.1, sodium 143, potassium 4.4, glucose 87 with UA unremarkable Plan: Advised on importance of cessation Defer management of depression and suicidal ideation to the primary psychiatry service Thank you for allowing us to participate in the care of this patient. We will follow peripherally. Do not hesitate to contact us with questions. Someone can be reached from the [facility] hospitalist group at all hours of the day at [phone]. Past Medical History Past Medical History: Hyperlipidemia History of Any Multi-Drug Resistant Organisms: None Reported Past Surgical History: No Surgical Hx Reported Smoking Status: Vaper Medications and Allergies Home Medications Medication Instructions Recorded Confirmed Type buPROPion XL [Wellbutrin XL] 300 mg PO DAILY #30 tab 07/13/23 12/01/23 Rx Mirtazapine [Remeron] 15 mg PO HS 11/23/23 12/01/23 History OLANZapine [ZyPREXA] 10 mg PO W/LUNCH 11/23/23 12/01/23 History Rosuvastatin [Crestor] 10 mg PO DAILY 11/23/23 12/01/23 History buPROPion XL [Wellbutrin XL] 150 mg PO W/SUPPER 11/23/23 12/01/23 History Allergies Allergy/AdvReac Type Severity Reaction Status Date / Time No Known Allergies Allergy Verified 11/23/23 12:44 Physical Exam Vitals: Vital Signs Temp Pulse Resp BP Pulse Ox 12/02/23 06:51 98.0 F 82 17 112/68 100 Results CBC & Chem 7: 12/02/23 12:35 12/02/23 12:35 Labs: Abnormal Lab Results - Last 24 Hours (Table) 12/02/23 Range/Units 12:35 Triglycerides 249.00 H (0.00-149.00) mg/dL Cholesterol 211.00 H (0.00-200.00) mg/dL VLDL Cholesterol, Calc 49.80 H (5.00-40.00) mg/dL HDL Cholesterol 35.90 L (40.00-60.00) mg/dL
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
--- NOTE | 2023-12-04 11:23 | P.PN ---
Progress Note - Text Progress Note Date: 12/04/23 Interval History: Patient was seen [wandering the hallways] and was directable and agreeable to speak with hand sign writer in the office. The patient states he is all right today. He does not feel like his medications are working for him yet, he is having a lot of anxiety, racing thoughts, and worrying about what the future holds. He is hoping to get into [facility]. He is ready to get sober. He states his sleep last night was quite restless. His appetite is good. He is attending groups. At this time patient denies any suicidal or homicidal ideations, intent or plan. Patient denies any auditory, visual hallucinations and denies any paranoia or delusions. Patient denies any side effects from the medications and has been compliant with meds. MENTAL STATUS EXAM: General Appearance: Patient appears to be older than stated age is alert, directable, and attempts to cooperate. Patient appears to have adequate hygiene and grooming. Short hair, shaved face, dressed casually, and has multiple tattoos Behavior: Patient is seated without any agitated behavior. Speech: Patient's speech is fluent and nonpressured. Mood/Affect: Patient reports their mood is all right, affect is congruent and constricted. improving Suicidality/Homicidality: Patient denies having any homicidal ideation intent or plan. Denies any suicidal ideations intent or plan Perceptions: Patient denies any visual hallucinations and denies any auditory hallucinations Though content/process: There is no evidence of any delusional thought content and thought process is linear and goal-directed. [place], mildly improving Memory and concentration: AOX3, grossly intact for the purposes of this session. Judgment and insight: poor, improving mildly IMPRESSIONS: mood disorder, unspecified, r/o bipolar disorder depressed hx of PTSD hx of ADHD cocaine abuse nicotine dependance PLAN: -Patient is admitted under voluntary status to [facility] for stabilization of psychiatric symptoms and safety. Patient interested in going to [facility] upon discharge. -Medications : increase Zoloft 100 mg daily for depression/anxiety, may need to titrate up, Wellbutrin 300 mg qam + 150 mg at 1800 for depression/mood stabilization, Remeron 15 mg qhs for sleep, increase Requip 0.50mg qhs for restless leg syndrome -Ativan and Haldol PRN for agitation/aggression -NRT - nicotine patch -SW on board for discharge planning. Encourage patient to participate in groups to work on coping skills. Waiting on approval and intake from [facility]. admin secretary will fax yesterday and today's progress notes to them today.
[2023-12-04] MEDS: SERTRALINE 50 MG TAB PO STA (11:44)
[2023-12-04] MEDS: ACETAMINOPHEN TAB 325 MG TAB PO PRN (21:17)
[2023-12-05] MEDS: SERTRALINE 100 MG TAB PO SCH (08:08)
--- NOTE | 2023-12-05 12:00 | P.PN ---
Progress Note - Text Interval history: Patient was seen [wandering the hallways] and was directable and agreeable to speak with chief writer. At this time patient denies any suicidal or homicidal ideations intent or plan. Denies any Auditory or visual hallucinations. Patient denies any side effects from the medications and has been compliant with meds. Mental status exam: General Appearance: [Patient appears to be older than stated age is alert, directable, and cooperative.] Behavior: [No agitated behavior. Patient is calm and directable] Speech: Patient's speech is fluent and nonpressured. Mood/Affect: Mood is improving mildly, affect is congruent and constricted. Suicidality/Homicidality: Patient denies having any suicidal or homicidal id eation intent or plan. Perceptions: Patient denies any auditory or visual hallucinations. Though content/process: [There is no evidence of any delusional thought content and thought process is linear and goal-directed.] Memory and concentration: AOX3, grossly intact for the purposes of this session Judgment and insight: improving mildly Assessment/Plan: Continue with current diagnosis. Patient continues to meet criteria for inpatient psychiatric admission for symptom stabilization and safety.[Patient will be maintained on current psychotropic medication regimen.] Monitor for medication compliance and for any psychotropic medication side effects. Will continue to monitor ongoing response to treatment. Encouraged participation in milieu.
[2023-12-05] MEDS: MAG HYDROX/AL HYDROX/SIMETH 355 ML BOTTLE PO PRN (22:05)
--- NOTE | 2023-12-06 10:06 | P.PN ---
Progress Note - Text Interval history: Patient was seen [wandering the hallways] and was directable and agreeable to speak with senior grant writer. []. At this time patient denies any suicidal or homicidal ideations intent or plan. Denies any Auditory or visual hallucinations. Patient denies any side effects from the medications and has been compliant with meds. Mental status exam: General Appearance: [Patient appears to beolder than stated age is alert, directable, and cooperative.] Behavior: [No agitated behavior. Patient is calm and directable] Speech: Patient's speech is fluent and nonpressured. Mood/Affect: Mood is improving mildly, affect is congruent and constricted. Suicidality/Homicidality: Patient denies having any suicidal or homicidal ideation intent or plan. Perceptions: Patient denies any auditory or visual hallucinations. Though content/process: [There is no evidence of any delusional thought content and thought process is linear and goal-directed.] Memory and concentration: AOX3, grossly intact for the purposes of this session Judgment and insight: improving mildly Assessment/Plan: Continue with current diagnosis. Patient continues to meet criteria for inpatient psychiatric admission for symptom stabilization and safety.[Patient will be maintained on current psychotropic medication regimen.] Monitor for medication compliance and for any psychotropic medication side effects. Will continue to monitor ongoing response to treatment. Encouraged participation in milieu.
--- NOTE | 2023-12-07 11:01 | P.PN ---
Progress Note - Text Progress Note Date: 12/07/23 Interval History: Patient was seen wandering the hallways and was directable and agreeable to sp meghan with radio script writer in the office. Taking with the patient he notes that he has a lot of guilt over relapse but notes that his behavior is generally self- destructive when it comes to narcotics. He notes that when he feels really good about himself he does not trust this and self sabotage this by using. He currently rates his depression as mild and his anxiety is severe. He notes overnight he struggled with tossing and turning in bed. He feels that his energy level is fair and appetite is good. He notes that he has chronic problems with concentration related to his ADHD.. At this time patient denies any suicidal or homical ideations, intent or plan. Patient denies any auditory, visual hallucinations and denies any paranoia or delusions. Patient denies any side effects from the medications and has been compliant with meds. Mental Status Exam: General Appearance: Patient appears to be stated age is alert, directable, and cooperative. Behavior: Patient is restless without agitated behavior. Speech: Patient's speech is fluent and nonpressured. Mood/Affect: Mood is improving mildly, affect is congruent and constricted. Patient appears to be anxious. Suicidality/Homicidality: Patient denies having any suicidal or homicidal ideation intent or plan. Perceptions: Patient denies any visual hallucinations and denies any auditory hallucinations Though content/process: There is no evidence of any delusional thought content and thought process is linear and goal-directed. Memory and concentration: AOX3, grossly intact for the purposes of this session Judgment and insight: Improving mildly Assessment: Patient is struggling with mild depression and severe anxiety and is at high risk of relapse which also would predispose him to a higher risk of self-harm. Continue hospitalization until inpatient rehab is found. IMPRESSIONS: mood disorder, unspecified hx of PTSD hx of ADHD cocaine abuse nicotine dependance PLAN: -Patient is admitted under voluntary status to MHU for stabilization of psychiatric symptoms and safety. Patient has signed adult voluntary form and medication consent and is placed in patient's chart. -Medications : Zoloft 100 mg daily for depression/anxiety Wellbutrin 300 mg qam + 150 mg at 1800 for depression/mood stabilization Remeron 15 mg qhs for sleep Requip 0.25mg qhs for restless leg syndrome -Ativan and Haldol PRN for agitation/aggression -Patient was counselled on substance abuse and desired to cut back on use -Patient was informed of the risks, benefits and side effects of the medication and patient verbally consented to taking the medications. -Internal Medicine consult to perform medical evaluation and physical. -NRT - nicotine patch -SW on board for discharge planning. Encourage patient to participate in groups to work on coping skills.
[2023-12-08 07:07] VITALS: RESP 14
--- NOTE | 2023-12-08 12:38 | P.PN ---
Progress Note - Text Progress Note Date: 12/08/23 Chief complaint: Suicidal ideations Interval History: Patient was seen [wandering the hallways] and was directable and agreeable to speak with blog writer in the office. Patient is presenting today feeling better after receiving news that he has been accepted to residential substance abuse. He notes that he still struggling with sleep and has requested an improvement with the Remeron. He currently rates his depression 3/10 with 10 being worst. Rates his anxiety 7/10 with 10 being worst. Eels that his overall energy is "okay". He notes that his appetite is normal. Continues to struggle with overall concentration related to ADHD issues.. At this time patient denies any suicidal or homical ideations, intent or plan. Patient denies any auditory, visual hallucinations and denies any paranoia or delusions. Patient denies any side effects from the medications and has been compliant with meds. Mental Status Exam: General Appearance: [Patient appears to be stated age is alert, directable, and cooperative.] Behavior: Patient presented somewhat restless but was able to calm down once finding out the information about his rehab. Speech: Patient's speech is fluent and nonpressured. Mood/Affect: Mood is improving mildly, affect is congruent and constricted. Suicidality/Homicidality: Patient denies having any suicidal or homicidal ideation intent or plan. Perceptions: Patient denies any visual hallucinations [and denies any auditory hallucinations] Though content/process: [There is no evidence of any delusional thought content and thought process is linear and goal-directed.] Memory and concentration: AOX3, grossly intact for the purposes of this session Judgment and insight: Improving mildly Assessment: Overall patient is doing well and is feeling very happy about placement and substance abuse rehab. He is struggling with sleep and will reduce the Remeron which has a better effect at lower doses for sleep. Patiently he requested that his Wellbutrin to be given at noon versus at 18:00. Anticipated discharge tomorrow. IMPRESSIONS: Mood disorder, unspecified Hx of PTSD Hx of ADHD Cocaine abuse Nicotine dependance PLAN: -Patient is admitted under voluntary status to MHU for stabilization of psychiatric symptoms and safety. Patient has signed adult voluntary form and medication consent and is placed in patient's chart. -Medications : Zoloft 100 mg daily for depression/anxiety Change dose to Wellbutrin 300 mg qam + 150 mg at 1200 for depression/mood stabilization Reduce to Remeron 7.5 mg qhs for sleep Requip 0.25mg qhs for restless leg syndrome -Ativan and Haldol PRN for agitation/aggression -Patient was counselled on substance abuse and desired to cut back on use -Patient was informed of the risks, benefits and side effects of the medication and patient verbally consented to taking the medications. -Internal Medicine consult to perform medical evaluation and physical. -NRT - nicotine patch -SW on board for discharge planning. Encourage patient to participate in groups to work on coping skills.
[2023-12-08] MEDS: buPROPion XL 150 MG TAB.ER.24H PO SCH (12:45)
[2023-12-08] MEDS: MIRTAZAPINE 15 MG TAB PO SCH (20:22)
[2023-12-09 07:02] VITALS: BP 117/83; PULSE 70; TEMP 97.9
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
== END 2023-12-09 09:31 | disposition home or self-care (01) | DRG 753 ==
LOC: 3MHU 14:55
PROVIDERS: ADMIT Psychiatry & Neurology Psychiatry; ATTEND Psychiatry & Neurology Psychiatry
DX: F39 Unspecified mood [affective] disorder (principal); E78.5 Hyperlipidemia, unspecified; F14.10 Cocaine abuse, uncomplicated; F32.A Depression, unspecified; F41.9 Anxiety disorder, unspecified; F43.10 Post-traumatic stress disorder, unspecified; F90.9 Attention-deficit hyperactivity disorder, unspecified type; G25.81 Restless legs syndrome; G47.00 Insomnia, unspecified; R45.851 Suicidal ideations; Z79.899 Other long term (current) drug therapy
CPT/HCPCS: 80053; 80061; 81003; 82248; 83036; 84443; 85025

== ENCOUNTER 2024-01-18 12:36 | Emergency (ER) | payer OTHER ==
[2024-01-18 12:41] VITALS: RESP 18
--- NOTE | 2024-01-18 13:35 | ED ---
Abdominal Pain HPI - General Chief Complaint: Abdominal Pain Stated Complaint: Abd pain Time Seen by Provider: 01/18/24 13:33 Source: patient, RN notes reviewed Mode of arrival: ambulatory Limitations: no limitations - History of Present Illness Initial Comments: 48-year-old male presenting to the ER with chief complaint of epigastric pain x 1 week. Describes an intermittent sharp pain that radiates to the back. Denies association to food. States he becomes nauseous with the pain but denies vomiting or diarrhea. States he has a history of acid reflux but states this pain feels different. Denies chest pain or shortness of breath. Denies history of abdominal surgeries. Past medical history includes hyperlipidemia and alcohol use disorder in recovery for several months. - Related Data Previous Rx's Medication Instructions Recorded Atorvastatin [Lipitor] 20 mg PO DAILY 30 Days #30 tab 12/08/23 Mirtazapine [Remeron] 7.5 mg PO HS 30 Days #15 tab 12/08/23 Nicotine 21Mg/24Hr Patch [Habitrol] 1 patch TRANSDERM DAILY 14 Days 12/08/23 #14 patch Sertraline [Zoloft] 100 mg PO DAILY 30 Days #30 tab 12/08/23 buPROPion XL [Wellbutrin XL] 150 mg PO DAILY@1200 30 Days #30 12/08/23 tab buPROPion XL [Wellbutrin XL] 300 mg PO DAILY #30 tab 12/08/23 rOPINIRole HCL [Requip] 0.5 mg PO HS 30 Days #30 tab 12/08/23 Pantoprazole [Protonix] 40 mg PO DAILY 14 Days #14 tab 01/18/24 Allergies Allergy/AdvReac Type Severity Reaction Status Date / Time No Known Allergies Allergy Verified 01/18/24 12:37 Review of Systems ROS Statement: Those systems with pertinent positive or pertinent negative responses have been documented in the HPI. ROS Other: All systems not noted in ROS Statement are negative. Past Medical History Past Medical History: Hyperlipidemia History of Any Multi-Drug Resistant Organisms: None Reported Past Surgical History: No Surgical Hx Reported Past Psychological History: Anxiety, Bipolar, Depression, PTSD Smoking Status: Vaper Past Alcohol Use History: None Reported Past Drug Use History: None Reported General Exam Limitations: no limitations General appearance: alert, in no apparent distress Head exam: Present: atraumatic, normocephalic, normal inspection Eye exam: Present: normal appearance, PERRL, EOMI. Absent: scleral icterus, conjunctival injection, periorbital swelling Respiratory exam: Present: normal lung sounds bilaterally. Absent: respiratory distress, wheezes, rales, rhonchi, stridor Cardiovascular Exam: Present: regular rate, normal rhythm, normal heart sounds. Absent: systolic murmur, diastolic murmur, rubs, gallop, clicks GI/Abdominal exam: Present: soft, normal bowel sounds. Absent: distended, tenderness, guarding, rebound, rigid Back exam: Absent: CVA tenderness (R), CVA tenderness (L) Neurological exam: Present: alert, oriented X3 Psychiatric exam: Present: normal affect, normal mood Skin exam: Present: warm, dry, intact, normal color. Absent: rash Course Vital Signs 01/18/24 12:38 Temperature 98.3 F Pulse Rate 85 Respiratory 18 Rate Blood Pressure 132/87 O2 Sat by Pulse 92 L Oximetry Medical Decision Making - Medical Decision Making Was pt. sent in by a medical professional or institution (, PA, BOILER HOUSE INSPECTOR, urgent c are, hospital, or snf...) When possible be specific @ -No Did you speak to anyone other than the patient for history (EMS, parent, family, police, friend...)? What history was obtained from this source @ -No Did you review nursing and triage notes (agree or disagree)? Why? @ -I reviewed and agree with nursing and triage notes Were old charts reviewed (outside hosp., previous admission, EMS record, old EKG, old radiological studies, urgent care reports/EKG's, snf records)? Report findings @ -No old charts were reviewed Differential Diagnosis (chest pain, altered mental status, abdominal pain women, abdominal pain men, vaginal bleeding, weakness, fever, dyspnea, syncope, h eadache, dizziness, GI bleed, back pain, seizure, CVA, palpatations, mental health, musculoskeletal)? @ -Differential Abdominal Pain Men: Appendicitis, cholecystitis, diverticulosis, ischemic bowel, pancreatitis, hepatitis, UTI, gastroenteritis, AAA, incarcerated hernia, bowel obstruction, constipation, inflammatory bowel, hepatitis, peptic ulcer disease, splenic infarction, perforated viscus, testicular torsion, this is not meant to be an all-inclusive list EKG interpreted by me (3pts min.). @ -As above X-rays interpreted by me (1pt min.). @ -None done CT interpreted by me (1pt min.). @ -CT abdomen pelvis reveals question of duodenitis or duodenal ulcer, no bowel obstruction or free intraperitoneal air or fluid, no other significant abnormality U/S interpreted by me (1pt. min.). @ -None done What testing was considered but not performed or refused? (CT, X-rays, U/S, labs)? Why? @ -None What meds were considered but not given or refused? Why? @ -None Did you discuss the management of the patient with other professionals (professionals i.e. , PA, BOILER HOUSE INSPECTOR, lab, RT, psych nurse, hospice social worker, r d internship, teacher, airplane first officer, geriatric case manager)? Give summary @ -No Was smoking cessation discussed for >3mins.? @ -No Was critical care preformed (if so, how long)? @ -No Were there social determinants of health that impacted care today? How? (Homelessness, low income, unemployed, alcoholism, drug addiction, transportation, low edu. Level, literacy, decrease access to med. care, correction, rehab)? @ -No Was there de-escalation of care discussed even if they declined (Discuss DNR or withdrawal of care, Hospice)? DNR status @ -No What co-morbidities impacted this encounter? (DM, HTN, Smoking, COPD, CAD, Cancer, CVA, ARF, Chemo, Hep., AIDS, mental health diagnosis, sleep apnea, morbid obesity)? @ -None Was patient admitted / discharged? Hospital course, mention meds given and route, prescriptions, significant lab abnormalities, going to OR and other pertinent info. @ -Discharge. This is a 48-year-old male presenting with epigastric pain x 1 week. Vital signs are within acceptable limits. Abdomen is soft and nontender to palpation. Patient is provided with IV fluids and analgesics. Lab work unremarkable. EKG reveals normal sinus rhythm with no ST changes. CT abdomen pelvis reveals question of duodenitis or duodenal ulcer, no bowel striction or free intraperitoneal air or fluid, no other significant abnormality. Results discussed with patient. Provided with one-time dose of Protonix and prescribed Protonix to pharmacy. Appropriate follow-up care and return precautions discussed. Case was discussed with my ED attending Dr. Moura. Undiagnosed new problem with uncertain prognosis? @ -No Drug Therapy requiring intensive monitoring for toxicity (Heparin, Nitro, In sulin, Cardizem)? @ -No Were any procedures done? @ -No Diagnosis/symptom? @ -Peptic ulcer disease Acute, or Chronic, or Acute on Chronic? @ -Acute Uncomplicated (without systemic symptoms) or Complicated (systemic symptoms)? @ -Uncomplicated Side effects of treatment? @ -No Exacerbation, Progression, or Severe Exacerbation? @ -No Poses a threat to life or bodily function? How? (Chest pain, [place], [place], pneumonia, PE, COPD, DKA, ARF, appy, cholecystitis, CVA, Diverticulitis, Homicidal, Suicidal, threat to staff... and all critical care pts) @ -No - Lab Data Result diagrams: 01/18/24 13:47 01/18/24 13:47 Lab Results 01/18/24 01/18/24 01/18/24 Range/Units 13:47 13:47 13:47 WBC 5.9 (3.8-10.6) k/uL RBC 5.44 (4.30-5.90) m/uL Hgb 16.1 (13.0-17.5) gm/dL Hct 48.7 (39.0-53.0) % MCV 89.5 (80.0-100.0) fL MCH 29.6 (25.0-35.0) pg MCHC 33.1 (31.0-37.0) g/dL RDW 13.0 (11.5-15.5) % Plt Count 436 (150-450) k/uL MPV 6.6 Neutrophils % 48 % Lymphocytes % 40 % Monocytes % 5 % Eosinophils % 4 % Basophils % 1 % Neutrophils # 2.9 (1.3-7.7) k/uL Lymphocytes # 2.3 (1.0-4.8) k/uL Monocytes # 0.3 (0-1.0) k/uL Eosinophils # 0.3 (0-0.7) k/uL Basophils # 0.1 (0-0.2) k/uL Sodium 140 (137-145) mmol/L Potassium 4.5 (3.5-5.1) mmol/L Chloride 106 (98-107) mmol/L Carbon Dioxide 26 (22-30) mmol/L Anion Gap 8 mmol/L BUN 17 (9-20) mg/dL Creatinine 1.05 (0.66-1.25) mg/dL Est GFR (CKD-EPI)AfAm >90 (>60 ml/min/1.73 sqM) Est GFR (CKD-EPI)NonAf 85 (>60 ml/min/1.73 sqM) Glucose 97 (74-99) mg/dL Plasma Lactic Acid Suman 1.2 (0.7-2.0) mmol/L Calcium 9.8 (8.4-10.2) mg/dL Total Bilirubin 0.4 (0.2-1.3) mg/dL AST 21 (17-59) U/L ALT 21 (4-49) U/L Alkaline Phosphatase 107 (38-126) U/L Total Protein 8.0 (6.3-8.2) g/dL Albumin 4.8 (3.5-5.0) g/dL Amylase 77 (30-110) U/L Lipase 124 (23-300) U/L - EKG Data -: EKG Interpreted by Pa EKG Comments: EKG reveals normal sinus rhythm with no ST changes. Ventricular rate 69 bpm, WV interval 153, QRS duration 90, QT/QTc 358/377 Disposition Clinical Impression: Duodenal ulcer Disposition: HOME SELF-CARE Condition: Stable Instructions (If sedation given, give patient instructions): Peptic Ulcer (ED) Additional Instructions: Take Protonix as directed. Please return to the Emergency Department if symptoms worsen or any other concerns. Prescriptions: Pantoprazole [Protonix] 40 mg PO DAILY 14 Days #14 tab Is patient prescribed a controlled substance at d/c from ED?: No Referrals: [facility] [NON-STAFF] - 1-2 days [facility] [NON-STAFF] - 1-2 days None,Stated [Primary Care Provider] - 1-2 days Forms: Area PCPs Time of Disposition: 15:53
[2024-01-18] MEDS: SODIUM CHLORIDE 0.9% 1,000 ML IV STA (13:48)
[2024-01-18] MEDS: KETOROLAC 15 MG/ML 1 ML VIAL IVP STA (13:49)
[2024-01-18 13:55] LABS: Basophils # (A) 0.1 k/uL (0-0.2); Basophils % (A) 1 %; Eosinophils # (A) 0.3 k/uL (0-0.7); Eosinophils % (A) 4 %; HCT 48.7 % (39.0-53.0); HGB 16.1 gm/dL (13.0-17.5); Lymphocytes # (A) 2.3 k/uL (1.0-4.8); Lymphocytes % (A) 40 %; MCH 29.6 pg (25.0-35.0); MCHC 33.1 g/dL (31.0-37.0); MCV 89.5 fL (80.0-100.0); Mean Platelet Volume 6.6; Monocytes # (A) 0.3 k/uL (0-1.0); Monocytes % (A) 5 %; Neutrophils # (A) 2.9 k/uL (1.3-7.7); Neutrophils % (A) 48 %; Platelet Count 436 k/uL (150-450); RBC 5.44 m/uL (4.30-5.90); WBC 5.9 k/uL (3.8-10.6)
[2024-01-18 14:11] LABS: ALT 21 U/L (4-49); AST 21 U/L (17-59); African American GFR (CKD) >90 (>60 ml/min/1.73 sqM); Albumin 4.8 g/dL (3.5-5.0); Alkaline Phosphatase 107 U/L (38-126); Amylase 77 U/L (30-110); Anion Gap 8 mmol/L; Blood Urea Nitrogen 17 mg/dL (9-20); Calcium 9.8 mg/dL (8.4-10.2); Carbon Dioxide 26 mmol/L (22-30); Chloride 106 mmol/L (98-107); Glucose 97 mg/dL (74-99); Lipase 124 U/L (23-300); Non-African American GFR(CKD) 85 (>60 ml/min/1.73 sqM); Potassium 4.5 mmol/L (3.5-5.1); Sodium 140 mmol/L (137-145); Total Bilirubin 0.4 mg/dL (0.2-1.3)
--- NOTE | 2024-01-18 15:19 | CT ---
EXAMINATION TYPE: CT abdomen pelvis w con DATE OF EXAM: 01/18/2024 COMPARISON: None CLINICAL INDICATION: Male, 48 years old with history of epigastric pain; PH[facility], Epigastric x 1 week TECHNIQUE: Performed without Oral Contrast and with IV Contrast, patient injected with 100 mL of Isovue 300. CT DLP: 871.[address] CTDI: mGy Automated exposure control for dose reduction was used. FINDINGS: The lung bases are clear. The gallbladder is normal without distention, wall thickening, pericholecystic fluid or gallstones. T here is no biliary ductal dilatation. There is no focal mass or organomegaly involving the liver, pancreas, spleen or adrenal glands. There is no solid renal mass or hydronephrosis and there is homogeneous contrast enhancement of the r enal parenchyma. The caliber the abdominal aorta is normal is no retroperitoneal adenopathy or hemorr lisette. There is irregular thickening of the second portion of duodenum which indicate duodenitis or even duo denal ulcer. There is no free intraperitoneal air or fluid. There is no bowel obstruction. No pelvic mass, free fluid, abscess or adenopathy. The osseous structures and soft tissues are intact. IMPRESSION: Findings there is a question of duodenitis or duodenal ulcer. There is no bowel obstruction or free i ntraperitoneal air or fluid. No other significant abnormality seen. [facility], , 01/18/2024 3:17 PM
[2024-01-18] MEDS: PANTOPRAZOLE 40 MG/10 ML VIAL IVP STA (16:26)
[2024-01-18 16:32] VITALS: BP 123/85; PULSE 74; TEMP 98.4
== END 2024-01-18 16:31 | disposition home or self-care (01) ==
LOC: EC 12:36
DX: K27.9 Peptic ulcer, site unspecified, unspecified as acute or chronic, without hemorrhage or perforation (principal); F17.290 Nicotine dependence, other tobacco product, uncomplicated
CPT/HCPCS: 36415; 93005; 80053; 82150; 83605; 83690; 85025; 74177; 99284; 96374; 96375; 96361 ×2; J1885; Q9967; J2470

== ENCOUNTER 2024-07-31 17:01 | Inpatient (IN) | payer MEDICAID, OTHER ==
--- NOTE | 2024-07-31 17:39 | ED ---
Psych HPI - General Source: patient, RN notes reviewed Mode of arrival: ambulatory <Yanci Ivy - Last Filed: 07/31/24 17:37> - General Source: patient, RN notes reviewed Mode of arrival: ambulatory Limitations: no limitations <Liz Matt - Last Filed: 08/01/24 01:24> - General Chief Complaint: Psychiatric Symptoms Stated Complaint: Mental health eval Time Seen by Provider: 07/31/24 17:37 - History of Present Illness Initial Comments: Quick [id number] male presenting for manic episode. States this has been going on for about 3 days. States he is in a recovery program and states they told him he needed to get a mental health evaluation in order to return. (Yanci Ivy) This is a 49-year-old male who presents to the emergency department for psychiatric evaluation. Patient is currently in the [facility] and states that he has been off of his mental health medication. For about a week he has been increasingly aggressive and paranoid. States that he has been unable to sleep for the last 3 days and has a very short temper. He was told that he needs to come in for a psychiatric evaluation in order for him to return. He had previously been on gabapentin and Wellbutrin, however it was not very effective. They then tried him on Qelbree which he states made everything worse and now he does not have any medication to take. States that he was advised that he needs to get back on some sort of medication regimen. He does also admit to some suicidal ideations without a plan. (Liz Matt) - Related Data Previous Rx's Medication Instructions Recorded Atorvastatin [Lipitor] 20 mg PO DAILY 30 Days #30 tab 12/08/23 Mirtazapine [Remeron] 7.5 mg PO HS 30 Days #15 tab 12/08/23 Nicotine 21Mg/24Hr Patch [Habitrol] 1 patch TRANSDERM DAILY 14 Days 12/08/23 #14 patch Sertraline [Zoloft] 100 mg PO DAILY 30 Days #30 tab 12/08/23 buPROPion XL [Wellbutrin XL] 150 mg PO DAILY@1200 30 Days #30 12/08/23 tab buPROPion XL [Wellbutrin XL] 300 mg PO DAILY #30 tab 12/08/23 rOPINIRole HCL [Requip] 0.5 mg PO HS 30 Days #30 tab 12/08/23 Pantoprazole [Protonix] 40 mg PO DAILY 14 Days #14 tab 01/18/24 Allergies Allergy/AdvReac Type Severity Reaction Status Date / Time No Known Allergies Allergy Verified 07/31/24 17:08 Review of Systems ROS Other: All systems not noted in ROS Statement are negative. <Yanci Ivy - Last Filed: 07/31/24 17:37> ROS Other: All systems not noted in ROS Statement are negative. <Liz Matt - Last Filed: 08/01/24 01:24> ROS Statement: Those systems with pertinent positive or pertinent negative responses have been documented in the HPI. Past Medical History Past Medical History: Hyperlipidemia History of Any Multi-Drug Resistant Organisms: None Reported Past Surgical History: No Surgical Hx Reported Past Psychological History: Anxiety, Bipolar, Depression, PTSD Smoking Status: Vaper Past Alcohol Use History: None Reported Past Drug Use History: None Reported <Yanci Ivy - Last Filed: 07/31/24 17:37> General Exam <Yanci Ivy - Last Filed: 07/31/24 17:37> Limitations: no limitations General appearance: alert, in no apparent distress Head exam: Present: atraumatic, normocephalic, normal inspection Respiratory exam: Present: normal lung sounds bilaterally. Absent: respiratory distress, wheezes, rales, rhonchi, stridor Cardiovascular Exam: Present: regular rate, normal rhythm Neurological exam: Present: alert, oriented X3, CN II-XII intact Psychiatric exam: Present: manic Skin exam: Present: warm, dry, intact, normal color. Absent: rash <Liz Matt - Last Filed: 08/01/24 01:24> - General Exam Comments Initial Comments: Visual Physical Exam Vital signs reviewed General: Well-appearing, nontoxic, no acute distress. Head: Normocephalic, atraumatic Eyes: PERRLA, EOMI ENT: Airway patent Chest: Nonlabored breathing Skin: No visual rash, normal skin tone Neuro: Alert and oriented 3 Musculoskeletal: No gross abnormalities (Yanci Ivy) Course Vital Signs 07/31/24 07/31/24 17:05 23:55 Temperature 98.8 F 97.9 F Pulse Rate 86 62 Respiratory 20 18 Rate Blood Pressure 156/102 123/84 O2 Sat by Pulse 96 97 Oximetry Medical Decision Making <BijuYanci - Last Filed: 07/31/24 17:37> <Liz Matt - Last Filed: 08/01/24 01:24> - Medical Decision Making I completed the quick note portion of this chart signed Yanci Ivy PA-C (Yanci Ivy) This is a 49-year-old male who presents to the emergency department for psychiatric evaluation. Was pt. sent in by a medical professional or institution? @ -No Did you speak to anyone other than the patient for history? @ -No Did you review nursing and triage notes? @ -Yes, and I agree, it is accurate with regards to the patient's symptoms. Were old charts reviewed? @ -No Differential Diagnosis? @ -Differential Mental Health Depression, anxiety, bipolar, psychosis, schizophrenia, borderline personality, situational depression, adjustment disorder, behavioral disorder, brain tumor, malingering, substance abuse, encephalopathy, medication reaction, dementia, hypothyroidism, degenerative neurologic disorder, lupus.... This is not meant to be all-inclusive list EKG interpreted by me (3pts min.)? @ -Not obtained X-rays interpreted by me (1pt min.)? @ -Not obtained CT interpreted by me (1pt min.)? @ -Not obtained U/S interpreted by me (1pt. min.)? @ -Not obtained What testing was considered but not performed? (CT, X-rays, U/S, labs)? Why? @ -None What meds were considered but not given? Why? @ -None Did you discuss the management of the patient with other professionals? @ -Yes, Candice with EPS, who advised that the patient will be admitted to [facility]. on a voluntary basis. Did you reconcile home meds? @ -No Was smoking cessation discussed for >3mins.? @ -No Was critical care preformed (if so, how long)? @ -No Were there social determinants of health that impacted care today? How? (Ho melessness, low income, unemployed, alcoholism, drug addiction, transportation, low edu. Level, literacy, decrease access to med. care, [facility], rehab)? @ -No Was there de-escalation of care discussed even if they declined? (Discuss DNR or withdrawal of care, Hospice)? @ -No What co-morbidities impacted this encounter? (DM, HTN, Smoking, COPD, CAD, Cancer, CVA, Hep., AIDS, mental health diagnosis, sleep apnea, morbid obesity)? @ -Mental health diagnosis, history of substance abuse Was patient admitted / discharged? @ -Admitted. Patient's BAT was 0.0 and he was medically cleared for EPS evaluation. UDS negative. EPS evaluated the patient and advised that he meets criteria for inpatient psychiatric hospitalization due to suicidal ideations, medication noncompliance, and inability to safety plan. Patient admitted to [facility] on a voluntary basis for further psychiatric care. Undiagnosed new problem with uncertain prognosis? @ -None Drug Therapy requiring intensive monitoring for toxicity (Heparin, Nitro, Insulin, Cardizem)? @ -None Were any procedures done? @ -None Diagnosis/symptom? @ -Suicidal ideations, manic episode Acute, or Chronic, or Acute on Chronic? @ -Acute Uncomplicated (without systemic symptoms) or Complicated (systemic symptoms)? @ -Complicated Side effects of treatment? @ -None Exacerbation, Progression, or Severe Exacerbation] @ -Not applicable Poses a threat to life or bodily function? @ -Yes, suicidal ideations can lead to (Liz Matt) - Lab Data Lab Results 07/31/24 07/31/24 Range/Units 22:03 22:10 Urine Color Yellow Urine Appearance Clear (Clear) Urine pH 5.5 (5.0-8.0) Ur Specific [place] 1.030 (1.001-1.035) Urine Protein Trace H (Negative) Urine Glucose (UA) Negative (Negative) Urine Ketones Negative (Negative) Urine Blood Negative (Negative) Urine Nitrite Negative (Negative) Urine Bilirubin Negative (Negative) Urine Urobilinogen <2.0 (<2.0) mg/dL Ur Leukocyte Esterase Small H (Negative) Urine RBC 2 (0-5) /hpf Urine WBC 9 H (0-5) /hpf Ur Squamous Epith Cells <1 (0-4) /hpf Urine Mucus Rare H (None) /hpf Urine Opiates Screen Not Detected (NotDetected) Ur Oxycodone Screen Not Detected (NotDetected) Urine Methadone Screen Not Detected (NotDetected) Ur Barbiturates Screen Not Detected (NotDetected) U Tricyclic Antidepress Not Detected (NotDetected) Ur Phencyclidine Scrn Not Detected (NotDetected) Ur Amphetamines Screen Not Detected (NotDetected) U Methamphetamines Scrn Not Detected (NotDetected) U Benzodiazepines Scrn Not Detected (NotDetected) Urine Cocaine Screen Not Detected (NotDetected) U Marijuana (THC) Screen Not Detected (NotDetected) Influenza Type A (PCR) Not Detected (Not Detectd) Influenza Type B (PCR) Not Detected (Not Detectd) RSV (PCR) Not Detected (Not Detectd) SARS-CoV-2 (PCR) Not Detected (Not Detectd) Disposition <Yanci Ivy - Last Filed: 07/31/24 17:37> <Liz Matt - Last Filed: 08/01/24 01:24> Clinical Impression: Suicidal ideation, Acute psychosis Disposition: TRANSFER TO PSYCH HOSP/UNIT
[2024-07-31 22:31] LABS: Amphetamine Screen,Urine Not Detected (NotDetected); Appearance,Urine Clear (Clear); Barbiturate Screen,Urine Not Detected (NotDetected); Benzodiazepines Screen,Urine Not Detected (NotDetected); Bilirubin,Urine Negative (Negative); Blood,Urine Negative (Negative); Cocaine Screen,Urine Not Detected (NotDetected); Color,Urine Yellow; Glucose,Urine (UA) Negative (Negative); Ketones,Urine Negative (Negative); Leukocyte Esterase,Urine Small (Negative); Methadone Screen, Urine Not Detected (NotDetected); Mucus,Urine Rare /hpf; Nitrite,Urine Negative (Negative); Opiate Screen,Urine Not Detected (NotDetected); Oxycodone Screen, Urine Not Detected (NotDetected); PH, Urine 5.5 (5.0-8.0); Phencyclidine Screen,Urine Not Detected (NotDetected); Protein,Urine Trace (Negative); RBC,Urine 2 /hpf (0-5); Squamous Epithelial Cell,Urine <1 /hpf (0-4); Tricyclic Antidepressant,Urine Not Detected (NotDetected); Urn Cannabinoid Scrn Not Detected (NotDetected); Urobilinogen,Urine <2.0 mg/dL (<2.0); WBC,Urine 9 /hpf (0-5)
[2024-07-31 22:38] LABS: Influenza A Not Detected (Not Detectd); Influenza B Not Detected (Not Detectd); RSV Not Detected (Not Detectd)
[2024-07-31] MEDS ORDERED: MAG HYDROX/AL HYDROX/SIMETH 355 ML BOTTLE PO PRN (23:48)
[2024-07-31] MEDS ORDERED: haloperidoL 5 MG TAB PO PRN (23:48)
[2024-07-31] MEDS ORDERED: LORazepam 1 MG/0.5 ML VIAL IM PRN (23:48)
[2024-07-31] MEDS ORDERED: LORazepam 1 MG TAB PO PRN (23:48)
[2024-07-31] MEDS ORDERED: IBUPROFEN 600 MG TAB PO PRN (23:48)
[2024-07-31] MEDS ORDERED: MAGNESIUM HYDROXIDE 2,400 MG/30 ML CUP PO PRN (23:48)
[2024-07-31] MEDS ORDERED: HALOPERIDOL LACTATE 5 MG/ML 1 ML VIAL IM PRN (23:48)
[2024-08-01 08:10] LABS: Basophils # (A) 0.07 10*3/uL (0.00-0.10); Basophils % (A) 1.2 %; Eosinophils # (A) 0.22 10*3/uL (0.04-0.35); Eosinophils % (A) 3.7 %; HCT 40.6 % (39.6-50.0); HGB 14.2 g/dL (13.0-17.0); Lymphocytes # (A) 2.44 10*3/uL (0.90-5.00); Lymphocytes % (A) 41.2 %; MCH 30.1 pg (27.0-32.0); MCV 86.2 fL (80.0-97.0); Mean Platelet Volume 9.5 fL (9.5-12.2); Monocytes # (A) 0.43 10*3/uL (0.20-1.00); Monocytes % (A) 7.3 %; Neutrophils # (A) 2.76 10*3/uL (1.80-7.70); Neutrophils % (A) 46.6 %; Platelet Count 319 10*3/uL (140-440); RBC 4.71 10*6/uL (4.40-5.60); RDW 12.6 % (11.5-14.5); WBC 5.92 10*3/uL (4.50-10.00)
[2024-08-01 08:20] LABS: ALT 15 U/L (4-49); AST 21 U/L (17-59); African American GFR (CKD) >90 (>60 ml/min/1.73 sqM); Albumin 3.6 g/dL (3.5-5.0); Alkaline Phosphatase 77 U/L (38-126); Anion Gap 7 mmol/L; Bilirubin, Delta 0.1 mg/dL (0.0-0.2); Bilirubin,Unconjugated 0.1 mg/dL (0.0-1.1); Blood Urea Nitrogen 12 mg/dL (9-20); Carbon Dioxide 26 mmol/L (22-30); Chloride 108 mmol/L (98-107); Glucose 106 mg/dL (74-99); Non-African American GFR(CKD) >90 (>60 ml/min/1.73 sqM); Potassium 3.8 mmol/L (3.5-5.1); Sodium 141 mmol/L (137-145); Total Bilirubin 0.2 mg/dL (0.2-1.3); Total Protein 6.1 g/dL (6.3-8.2)
[2024-08-01] MEDS: NICOTINE 14MG/24HR PATCH TRANSDERM SCH (09:25)
[2024-08-01] MEDS ORDERED: LORazepam 2 MG/ML INJ IM PRN (10:06)
[2024-08-01] MEDS: ARIPiprazole 5 MG TAB PO SCH (11:57)
[2024-08-01] MEDS: GABAPENTIN 300 MG CAP PO SCH (11:57)
[2024-08-01] MEDS: buPROPion XL 150 MG TAB.ER.24H PO SCH (11:57)
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
[2024-08-01] MEDS: ACETAMINOPHEN TAB 325 MG TAB PO PRN (20:54)
[2024-08-01] MEDS ORDERED: ONDANSETRON 4 MG/2 ML VIAL IVP PRN (21:38)
[2024-08-02 10:12] LABS: Basophils # (A) 0.05 10*3/uL (0.00-0.10); Basophils % (A) 0.7 %; Eosinophils # (A) 0.15 10*3/uL (0.04-0.35); Eosinophils % (A) 2.1 %; HCT 42.1 % (39.6-50.0); HGB 14.5 g/dL (13.0-17.0); Lymphocytes # (A) 1.83 10*3/uL (0.90-5.00); Lymphocytes % (A) 26.2 %; MCH 29.8 pg (27.0-32.0); MCHC 34.4 g/dL (32.0-37.0); MCV 86.6 fL (80.0-97.0); Mean Platelet Volume 9.3 fL (9.5-12.2); Monocytes # (A) 0.34 10*3/uL (0.20-1.00); Monocytes % (A) 4.9 %; Platelet Count 338 10*3/uL (140-440); RBC 4.86 10*6/uL (4.40-5.60); RDW 12.6 % (11.5-14.5); WBC 6.98 10*3/uL (4.50-10.00)
[2024-08-02 10:24] LABS: ALT 16 U/L (4-49); AST 24 U/L (17-59); African American GFR (CKD) >90 (>60 ml/min/1.73 sqM); Alkaline Phosphatase 86 U/L (38-126); Anion Gap 8 mmol/L; Blood Urea Nitrogen 13 mg/dL (9-20); Calcium 9.5 mg/dL (8.4-10.2); Carbon Dioxide 28 mmol/L (22-30); Chloride 107 mmol/L (98-107); Glucose 122 mg/dL (74-99); Non-African American GFR(CKD) >90 (>60 ml/min/1.73 sqM); Potassium 3.7 mmol/L (3.5-5.1); Sodium 143 mmol/L (137-145); Total Bilirubin 0.4 mg/dL (0.2-1.3); Total Protein 6.6 g/dL (6.3-8.2)
--- NOTE | 2024-08-02 12:37 | P.PN ---
Progress Note - Text Progress Note Date: 08/02/24 Interval History: Patient was seen wandering the hallways and was directable and agreeable to sp meghan with lyric writer in the office. Patient was future oriented today, talked about his desire to return to work tomorrow at midnight. He reports tolerating his medications well, denying any further mood swings or irritability. He reports paranoia that appears close to baseline, no worsening and states this is related to his time in long term. He regrets his past outburst with his friend at the recovery center, he is still looking forward to returning there for maintenance in his sobriety. At this time patient denies any suicidal or homicidal ideations, intent or plan. Patient denies any auditory, visual hallucinations and denies any paranoia or delusions. Patient denies any side effects from the medications and has been compliant with meds. Mental Status Exam: General Appearance: Patient appears to be stated age is alert, directable, and cooperative. He has fair grooming and hygiene Behavior: Patient is calmly seated without any agitated behavior. Speech: Patient's speech is fluent and nonpressured. Mood/Affect: Mood is improving mildly, affect is congruent and constricted. Suicidality/Homicidality: Patient denies having any suicidal or homicidal ideation intent or plan. Perceptions: Patient denies any visual hallucinations and denies any auditory hallucinations Though content/process: There is no evidence of any delusional thought content and thought process is linear and goal-directed. Memory and concentration: AOX3, grossly intact for the purposes of this session Judgment and insight: Improving mildly Assessment Unspecified mood disorder Rule out bipolar 2 disorder versus MDD PTSD Generalized anxiety disorder Nicotine dependence Cocaine use disorder, in remission Plan: -Patient continues to meet criteria for inpatient psychiatric admission for symptom stabilization and safety. Patient has signed adult voluntary form and medication consent and was placed in patient's chart. -Medications: Increase Abilify to 7.5 mg daily for mood stabilization, continue Wellbutrin XL 300 mg daily for depression, gabapentin 600 mg twice daily for anxiety -When necessary Ativan and Haldol for agitation/aggression. -Labs: A1c/LFTs WNL -NRT - nicotine patch -SW on board for discharge planning. Encouraged the patient to participate in milieu. Anticipate discharge to [facility] recovery tomorrow
[2024-08-02] MEDS: ARIPiprazole 5 MG TAB PO ONE (13:09)
[2024-08-02 15:16] LABS: LDL Cholesterol,Calculated 120.3 mg/dL (0.0-131.0)
--- NOTE | 2024-08-03 06:23 | P.MDCNMH ---
History of Present Illness H&P Date: 08/02/24 49-year-old male denies any significant past medical history Patient presented due to acute psychosis and aggressive behavior for mental health evaluation He was reporting some abdominal discomfort and feeling nauseous earlier but once he threw up he felt better it all started after having dinner at the hospital. The patient currently denies any medical concerns , denies any fever, chills, c ough, sore throat, chest pain , trouble breathing , nausea , vomiting, abd pain , changes in urinary or bowel habits. Patient denies any tobacco smoking and illicit drugs or alcohol review of systems Pertinent positives as noted in HPI. All other systems were reviewed and are negative on exam Constitutional: No acute distress Eyes: Anicteric sclerae, moist conjunctiva, Pupils equal round reactive to light Lungs: Clear to auscultation Clear to percussion Normal respiratory effort, no accessory muscle use Cardiovascular: Heart regular in rate and rhythm, No murmurs, gallops, or rubs No peripheral edema Abdominal: Soft Nontender, no guarding, rebound or rigidity Abdomen moving with respiration Normoactive bowel sounds Extremities: No clubbing Pedal pulses intact and symmetrical Radial pulses intact and symmetrical No calf tenderness Psychiatric: Alert and oriented to person, place and time Neuro Muscles Strength 5/5 in all 4 extremities Sensation to light touch grossly present throughout Past Medical History Past Medical History: Hyperlipidemia History of Any Multi-Drug Resistant Organisms: None Reported Past Surgical History: No Surgical Hx Reported Past Anesthesia/Blood Transfusion Reactions: No Reported Reaction Smoking Status: Current every day smoker, Vaper - Past Family History Mother History Unknown: Yes Medications and Allergies Home Medications Medication Instructions Recorded Confirmed Type Atorvastatin [Lipitor] 20 mg PO DAILY 30 Days #30 tab 12/08/23 Rx Mirtazapine [Remeron] 7.5 mg PO HS 30 Days #15 tab 12/08/23 Rx Nicotine 21Mg/24Hr Patch [Habitrol] 1 patch TRANSDERM DAILY 14 Days 12/08/23 Rx #14 patch Sertraline [Zoloft] 100 mg PO DAILY 30 Days #30 tab 12/08/23 Rx buPROPion XL [Wellbutrin XL] 150 mg PO DAILY@1200 30 Days #30 12/08/23 Rx tab buPROPion XL [Wellbutrin XL] 300 mg PO DAILY #30 tab 12/08/23 Rx rOPINIRole HCL [Requip] 0.5 mg PO HS 30 Days #30 tab 12/08/23 Rx Pantoprazole [Protonix] 40 mg PO DAILY 14 Days #14 tab 01/18/24 Rx Allergies Allergy/AdvReac Type Severity Reaction Status Date / Time No Known Allergies Allergy Verified 07/31/24 17:08 Physical Exam Vitals: Vital Signs Temp Pulse Resp BP Pulse Ox 08/01/24 21:00 97.6 F 58 L 17 133/85 99 08/01/24 09:00 97.8 F 63 130/84 98 Cranial Nerve Examination - Cranial Nerves Cranial Nerve II- Optic: Intact Cranial Nerve III- Oculomotor: Intact Cranial Nerve IV- Trochlear: Intact Cranial Nerve V- Trigeminal: Intact Cranial Nerve - Abducens: Intact Cranial Nerve VII- Facial: Intact Cranial Nerve VIII- Auditory: Intact Cranial Nerve IX- Glossopharyngeal: Intact Cranial Nerve X- Vagus: Intact Cranial Nerve XI- Accessory: Intact Cranial Nerve XII- Hypoglossal: Intact Results CBC & Chem 7: 08/02/24 09:49 08/02/24 09:49 Labs: Abnormal Lab Results - Last 24 Hours (Table) 08/01/24 Range/Units 07:48 Chloride 108 H (98-107) mmol/L Glucose 106 H (74-99) mg/dL Total Protein 6.1 L (6.3-8.2) g/dL TSH 0.437 L (0.465-4.680) mIU/L Assessment and Plan Assessment: Acute psychosis management per primary psych team Abdominal discomfort with 1 episode of nausea vomiting after eating Resolved Blood work unremarkable CBC, renal and liver function unremarkable Acute respiratory viral panel negative for RSV COVID and influenza Low TSH Awaiting free T4 Thank you for this consultation
[2024-08-03] MEDS: ARIPiprazole 5 MG TAB PO SCH (08:32)
[2024-08-03 09:30] VITALS: BP 115/105; PULSE 82; RESP 16; TEMP 97.6
[2024-08-03 11:28] LABS: T4, Free (Free Thyroxine) 1.02 ng/dL (0.78-2.19)
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
== END 2024-08-03 11:07 | disposition home or self-care (01) | DRG 751 ==
LOC: EC 17:01 → 3MHU 23:37
PROVIDERS: ADMIT Psychiatry & Neurology Psychiatry; ATTEND Psychiatry & Neurology Psychiatry
DX: F39 Unspecified mood [affective] disorder (principal); R45.851 Suicidal ideations; E78.5 Hyperlipidemia, unspecified; F41.1 Generalized anxiety disorder; F43.10 Post-traumatic stress disorder, unspecified; F17.290 Nicotine dependence, other tobacco product, uncomplicated; F90.9 Attention-deficit hyperactivity disorder, unspecified type; F32.9 Major depressive disorder, single episode, unspecified; F14.11 Cocaine abuse, in remission; Z79.899 Other long term (current) drug therapy; Z91.148 Patient's other noncompliance with medication regimen for other reason; Z81.8 Family history of other mental and behavioral disorders; Z71.51 Drug abuse counseling and surveillance of drug abuser
CPT/HCPCS: 80053; 80061; 80306; 81001; 82075; 82248; 83036; 83605; 84439; 84443; 84481; 85025; 87636; 93005; 99285